=== PATIENT | female | born 1945 | race Caucasian/White ===

== ENCOUNTER 2016-05-24 13:23 | Outpatient (CLI) | payer MEDICARE, OTHER | END 2016-05-24 13:24 | disposition home or self-care (01) | DX: Z12.31 Encounter for screening mammogram for malignant neoplasm of breast (principal); Z80.3 Family history of malignant neoplasm of breast ==

== ENCOUNTER 2016-07-26 11:53 | Outpatient (CLI) | payer MEDICARE, OTHER ==
[2016-07-26] MEDS ORDERED: IOPAMIDOL-300 100 ML VIAL IVP ONE (13:29)
[2016-07-26] MEDS ORDERED: IOPAMIDOL-300 50 ML VIAL PO ONE (13:29)
== END 2016-07-26 11:54 | disposition home or self-care (01) ==
DX: R93.5 Abnormal findings on diagnostic imaging of other abdominal regions, including retroperitoneum (principal); K57.30 Diverticulosis of large intestine without perforation or abscess without bleeding
CPT/HCPCS: 36415; 74177; 80048; Q9967

== ENCOUNTER 2016-07-31 09:58 | Outpatient (CLI) | payer MEDICARE, OTHER | END 2016-07-31 09:59 | disposition home or self-care (01) | DX: E11.9 Type 2 diabetes mellitus without complications (principal) ==

== ENCOUNTER 2016-09-12 10:25 | Day surgery (SDC) | payer MEDICARE, OTHER ==
[2016-09-12] MEDS ORDERED: LACTATED RINGERS 100 ML IV ONE (12:53)
[2016-09-12] MEDS ORDERED: BENZOCAINE/TETRACAINE/BUTAMBEN SPRAY 56 GM TOP ONE (12:58)
[2016-09-12] MEDS ORDERED: LIDO GARGLE 30 ML BOTTLE TOP ONE (12:58)
[2016-09-12] MEDS ORDERED: LACTATED RINGERS 1,000 ML IV ONE (13:19)
[2016-09-12] MEDS ORDERED: diphenhydrAMINE INJ 50 MG/ML VIAL ONE (13:54)
[2016-09-12] MEDS ORDERED: MIDAZOLAM 2 MG/2 ML VIAL IVP ONE (14:00)
[2016-09-12] MEDS ORDERED: KETAMINE 500 MG/10 ML VIAL IVP ONE (14:00)
[2016-09-12] MEDS ORDERED: LIDOCAINE-MPF 2% 5 ML VIAL IM ONE (14:00)
[2016-09-12] MEDS ORDERED: fentaNYL 100 MCG/2 ML VIAL IVP ONE (14:00)
== END 2016-09-12 10:26 | disposition home or self-care (01) ==
PROC: 0DB68ZX Excision of Stomach, Via Natural or Artificial Opening Endoscopic, Diagnostic (ICD-10-PCS; principal; 2016-09-12 11:30)
DX: K31.7 Polyp of stomach and duodenum (principal); K29.60 Other gastritis without bleeding; K58.9 Irritable bowel syndrome, unspecified; Z88.0 Allergy status to penicillin; I10 Essential (primary) hypertension; E78.00 Pure hypercholesterolemia, unspecified; E66.9 Obesity, unspecified; E11.9 Type 2 diabetes mellitus without complications; Z68.35 Body mass index [BMI] 35.0-35.9, adult; Z83.3 Family history of diabetes mellitus; Z82.49 Family history of ischemic heart disease and other diseases of the circulatory system; Z82.3 Family history of stroke; Z79.82 Long term (current) use of aspirin; Z80.1 Family history of malignant neoplasm of trachea, bronchus and lung; Z80.3 Family history of malignant neoplasm of breast; Z90.49 Acquired absence of other specified parts of digestive tract; Z90.710 Acquired absence of both cervix and uterus; Z87.891 Personal history of nicotine dependence
CPT/HCPCS: 43251; A9270; J7120

== ENCOUNTER 2016-11-15 09:41 | Outpatient (CLI) | payer MEDICARE, OTHER ==
[2016-11-15 19:41] LABS: ALBUMIN/GLOBULIN RATIO 1.3 (1.0-2.2); BILIRUBIN,TOTAL 1.1 mg/dL (0.2-1.0); BUN - BLOOD UREA NITROGEN 29 mg/dL (6-20); CALCIUM 9.6 mg/dL (8.5-10.3); CARBON DIOXIDE - CO2 24 mmol/L (21-32); CHLORIDE 102 mmol/L (101-111); CHOL/HDL RATIO 5.5 (<4.4); CHOLESTEROL 242 mg/dL; CREATININE 1.5 mg/dL (0.4-1.0); GFR - MDRD 34 (>89); GLUCOSE 116 mg/dL (70-100); HDL CHOLESTEROL 44 mg/dL; LDL/HDL RATIO 3.7 (<4.4); POTASSIUM 4.4 mmol/L (3.5-5.0); SODIUM 137 mmol/L (135-145); TOTAL PROTEIN 7.8 g/dL (6.7-8.2); TRIGLYCERIDES 172 mg/dL; VLDL CHOLESTEROL 34 mg/dL
[2016-11-15 20:01] LABS: HEMOGLOBIN A1C 0.64 g/dL
== END 2016-11-15 09:42 | disposition home or self-care (01) ==
LOC: LAB.WCP 09:41
PROVIDERS: ATTEND Physician Assistant Medical
DX: E11.9 Type 2 diabetes mellitus without complications (principal)
CPT/HCPCS: 36415; 80053; 80061; 83036

== ENCOUNTER 2017-02-13 11:47 | Outpatient (CLI) | payer MEDICARE, OTHER ==
[2017-02-13 19:23] LABS: CALCIUM 9.4 mg/dL (8.5-10.3); CREATININE 1.6 mg/dL (0.4-1.0); POTASSIUM 4.6 mmol/L (3.5-5.0)
[2017-02-13 19:51] LABS: HEMOGLOBIN A1C 0.5 g/dL
== END 2017-02-13 11:48 | disposition home or self-care (01) ==
LOC: LAB.WCP 11:47
PROVIDERS: ATTEND Physician Assistant Medical
DX: E11.9 Type 2 diabetes mellitus without complications (principal)
CPT/HCPCS: 36415; 80048; 83036

== ENCOUNTER 2017-03-15 09:50 | Outpatient (CLI) | payer MEDICARE, OTHER ==
[2017-03-16 09:36] LABS: CALCIUM 9.1 mg/dL (8.5-10.3); CREATININE 1.3 mg/dL (0.4-1.0)
== END 2017-03-15 09:51 | disposition home or self-care (01) ==
LOC: LAB.WCP 09:50
PROVIDERS: ATTEND Physician Assistant Medical
DX: N18.9 Chronic kidney disease, unspecified (principal)
CPT/HCPCS: 36415; 80048; 82043

== ENCOUNTER 2017-09-10 11:21 | Outpatient (CLI) | payer MEDICARE, OTHER ==
[2017-09-10 19:16] LABS: ALBUMIN 4.2 g/dL (3.2-5.5); ALBUMIN/GLOBULIN RATIO 1.3 (1.0-2.2); CALCIUM 9.4 mg/dL (8.5-10.3); CREATININE 0.9 mg/dL (0.4-1.0); TOTAL PROTEIN 7.4 g/dL (6.7-8.2)
[2017-09-10 20:15] LABS: HEMOGLOBIN A1C 0.77 g/dL; HEMOGLOBIN A1C % 6.8 % (4.6-6.2)
== END 2017-09-10 11:22 ==
LOC: LAB.WCP 11:21
PROVIDERS: ATTEND Physician Assistant Medical
DX: E11.9 Type 2 diabetes mellitus without complications (principal)
CPT/HCPCS: 36415; 80053; 83036

== ENCOUNTER 2017-09-11 13:38 | Outpatient (CLI) | payer MEDICARE, OTHER ==
--- NOTE | 2017-09-13 11:59 | DEXA Report ---
DEXA SCAN: 09/11/2017 CLINICAL INDICATION: Postmenopausal. TECHNIQUE: Dual energy x-ray absorptiometry (DXA) was performed on a [employer] system. Regions measured are the AP spine, femoral neck, and, if needed, forearm. COMPARISON: None. In accordance with the International Society for Clinical Densitometry (ISCD) guidelines, data from previous exams may be reanalyzed using current recommendations and techniques. This is done to allow a more accurate basis for comparison with the current study. FINDINGS: The data for the lumbar spine is as follows: REGION BMD (g/cm/cm) T-SCORE Z-SCORE L1 1.046 -0.7 0.1 L2 1.075 -1.0 -0.3 L3 1.251 0.4 1.2 L4 0.942 -2.2 -1.4 TOTAL 1.078 -0.8 -0.1 NOTE: All evaluable vertebrae are used for classification. The data for the hip is as follows: REGION BMD (g/cm/cm) T-SCORE Z-SCORE Neck 0.892 -1.1 0.1 TOTAL 0.921 -0.7 0.1 NOTE: The femoral neck or total proximal femur, whichever is lowest, is used for classification. IMPRESSION: THE WHO CLASSIFICATION BASED ON THE INTERNATIONAL REFERENCE STANDARD IS OSTEOPENIA (REFERENCE LEFT FEMORAL NECK) . THE FRACTURE RISK IS INCREASED. RECOMMENDATION: Patients with diagnosis of osteoporosis or osteopenia should have regular bone mineral density assessment. For those eligible for Medicare, routine testing is allowed once every 2 years. Testing frequency can be increased for patients who have rapidly progressing disease or for those who are receiving medical therapy to restore bone mass. COMMENT: World Health Organization (WHO) definitions for osteoporosis and osteopenia: NORMAL BMD: T-score at 1.0 or higher, fracture risk is low. OSTEOPENIA BMD: T-score between 1.0 and -2.5, fracture risk is increased. OSTEOPOROSIS BMD: T-score at 2.5 or lower, fracture risk high. National Osteoporosis Foundation recommends: 1. Obtain adequate dietary calcium (at least 1200 mg per day) and vitamin D (400 -800 international units per day). 2. Participate, as appropriate, in regular weightbearing and muscle- strengthening exercise. 3. Avoid tobacco use and reduce alcohol and caffeine intake. 4. For more detailed information see the website at www.NOF.org. MTDD
== END 2017-09-11 13:39 | disposition home or self-care (01) ==
LOC: DI 13:38
PROVIDERS: ATTEND Physician Assistant Medical
DX: M89.9 Disorder of bone, unspecified (principal)
CPT/HCPCS: 77080

== ENCOUNTER 2017-10-22 08:00 | Outpatient (CLI) | payer MEDICARE, OTHER ==
[2017-10-22 19:44] LABS: CALCIUM 9.5 mg/dL (8.5-10.3); CREATININE 1.2 mg/dL (0.4-1.0)
== END 2017-10-22 08:01 | disposition home or self-care (01) ==
LOC: LAB.WCP 08:00
PROVIDERS: ATTEND Family Medicine
DX: R25.2 Cramp and spasm (principal); R25.1 Tremor, unspecified
CPT/HCPCS: 36415; 80048; 84443

== ENCOUNTER 2017-12-19 08:00 | Outpatient (CLI) | payer MEDICARE, OTHER ==
[2017-12-19 19:13] LABS: HB2 TOTAL 14.1 g/dL; HEMOGLOBIN A1C 0.8 g/dL; HEMOGLOBIN A1C % 7.3 % (4.6-6.2)
[2017-12-19 19:17] LABS: ALBUMIN/GLOBULIN RATIO 1.1 (1.0-2.2); ALKALINE PHOSPHATASE 69 IU/L (42-121); ALT ALANINE AMINOTRANSFERASE 22 IU/L (10-60); AST ASPARTATE AMINOTRANSFERASE 26 IU/L (10-42); BILIRUBIN,TOTAL 0.9 mg/dL (0.2-1.0); BUN - BLOOD UREA NITROGEN 27 mg/dL (6-20); CALCIUM 9.5 mg/dL (8.5-10.3); CARBON DIOXIDE - CO2 26 mmol/L (21-32); CHLORIDE 101 mmol/L (101-111); CHOLESTEROL 241 mg/dL; CREATININE 1.3 mg/dL (0.4-1.0); GFR - MDRD 40 (>89); GLUCOSE 140 mg/dL (70-100); HDL CHOLESTEROL 40 mg/dL; LDL CHOLESTEROL,CALCULATED 161 mg/dL; SODIUM 135 mmol/L (135-145); TOTAL PROTEIN 7.7 g/dL (6.7-8.2); VLDL CHOLESTEROL 40 mg/dL
== END 2017-12-19 08:01 | disposition home or self-care (01) ==
LOC: LAB.WCP 08:00
PROVIDERS: ATTEND Physician Assistant Medical
DX: E11.9 Type 2 diabetes mellitus without complications (principal)
CPT/HCPCS: 36415; 80053; 80061; 83036; 83721

== ENCOUNTER 2017-12-28 10:38 | Outpatient (CLI) | payer MEDICARE, OTHER ==
--- NOTE | 2017-12-31 13:34 | Mammography Report ---
Procedure Date: 12/28/2017 Accession Number: [id number] / [id number] Procedure: MGN - Screening Mammo Dig Bilat CPT Code: FULL RESULT: EXAM: Screening Mammo Dig Bilat DATE: 12/28/2017 10:56 AM CLINICAL HISTORY: 72-year-old female with history of early menses and with family history of breast cancer in the mother at age 64. TECHNIQUE: Bilateral CC and MLO views were obtained. COMPARISON: None FINDINGS: The breasts demonstrate scattered fibroglandular densities bilaterally. Coarse typically benign calcifications are seen bilaterally. No suspicious masses, clustered microcalcifications, or regions of architectural distortion are identified. IMPRESSION: Benign findings RECOMMENDATION: Routine annual screening unless otherwise clinically indicated. BIRADS CATEGORY 2: Benign findings STANDARD QUALIFYING STATEMENTS: 1. This examination was reviewed with the aid of Computer-Aided Detection (CAD). 2. A negative or benign imaging report should not delay biopsy if clinically suspicious findings are present. Consider surgical consultation if warrented. More than 5% of cancers are not identified by imaging. 3. Dense breasts may obscure an underlying neoplasm.
== END 2017-12-28 10:39 | disposition home or self-care (01) ==
LOC: DI.N 10:38
PROVIDERS: ATTEND Radiology Diagnostic Radiology
DX: Z12.31 Encounter for screening mammogram for malignant neoplasm of breast (principal); Z80.3 Family history of malignant neoplasm of breast
CPT/HCPCS: 77067

== ENCOUNTER 2018-01-03 16:27 | Outpatient (CLI) | payer MEDICARE, OTHER ==
--- NOTE | 2018-01-04 17:09 | MRI Report ---
Procedure Date: 01/03/2018 Accession Number: [id number] / [id number] Procedure: MRI - Lumbar Spine W/O CPT Code: FULL RESULT: EXAM: MRI LUMBAR SPINE WITHOUT CONTRAST EXAM DATE: 01/03/2018 05:12 PM. CLINICAL HISTORY: Degenerative disk disease, lumbar spine. COMPARISON: None. TECHNIQUE: Multiplanar, multisequence T1-weighted and fluid-sensitive sequences of the lumbar spine from T12 to S1 without contrast. Other: None. FINDINGS: There is a mild degree of accentuation of the normal lumbar lordosis. The conus terminates at the mid L1 vertebral body level. There is mild decrease in the height of the disk with desiccation at T9-T10, T10-T11, T11-T12, T12-L1, L1-L2, L2-L3, and L3-L4. The abdominal aorta is of normal caliber. There is no significant atrophy of the paraspinal musculature or the psoas musculature. There is an atypical hemangioma within L2. There is a small hemangioma in the superior Endplate of L5. There is small foci of Modic type II endplate degenerative change within the T12-L1, L1-L2, and L2-L3 endplates. The kidneys are without evidence of hydronephrosis. T9-T10: There is a small disk osteophyte complex producing a mild central canal stenosis. There is no significant foraminal stenosis. T10-T11: There is a small disk osteophyte complex. There is mild ligamentum flavum hypertrophy. There is a mild to moderate central canal stenosis. There is mild neural foraminal narrowing bilaterally. T11-T12: There is a small disk osteophyte complex producing a mild central canal stenosis. There is no significant foraminal stenosis. T12-L1: There is a small disk osteophyte complex abutting the sac producing a mild central canal stenosis. There is no significant foraminal stenosis. L1-L2: There is a small disk osteophyte complex producing a mild central canal stenosis. There is mild left facet arthropathy. There is mild narrowing of the neural foramina bilaterally. L2-L3: There is a broad-based disk osteophyte complex abutting the sac producing a mild central canal stenosis. The facets are normal. There is mild neural foraminal narrowing bilaterally. L3-L4: There is a broad-based disk osteophyte complex producing a moderate central canal stenosis in conjunction with epidural lipomatosis. The facets are normal. There is mild to moderate neural foraminal narrowing bilaterally. L4-L5: There is mild to moderate bilateral facet arthropathy and ligamentum flavum hypertrophy. There is no significant disk bulge or central canal stenosis. There is mild to moderate neural foraminal narrowing bilaterally. L5-S1: There is a minimal disk bulge but without significant central canal stenosis. There is no significant disk bulge or central canal stenosis. The facets are normal. There is no significant foraminal stenosis. IMPRESSION: 1. There are mild central canal stenoses at T9-T10, T11-T12, T12-L1, L1-L2 and L2-L3 from small disk osteophyte complexes. 2. There is a moderate central canal stenosis from a broad-based disk osteophyte complex in conjunction with epidural lipomatosis at L3-L4. Comment: The following findings are so common in adults without low back pain that while we report their presence, they must be interpreted with caution and in the context of the clinical situation. (Reference Laryk et al, Spine 2001) Prevalence of findings in patients without low back pain: Disk degeneration (any evidence): 92% Disk desiccation/T2 signal loss: 83% Disk height loss: 56% Disk bulge: 64% Disk protrusion: 32% Annular tear/high intensity zone: 38% RADIA
== END 2018-01-03 16:28 | disposition home or self-care (01) ==
LOC: DI 16:27
PROVIDERS: ATTEND Physician Assistant Medical
DX: M51.36 Other intervertebral disc degeneration, lumbar region (principal); M51.34 Other intervertebral disc degeneration, thoracic region; M47.896 Other spondylosis, lumbar region; M47.894 Other spondylosis, thoracic region; M48.04 Spinal stenosis, thoracic region; M48.061 Spinal stenosis, lumbar region without neurogenic claudication; E88.2 Lipomatosis, not elsewhere classified
CPT/HCPCS: 72148

== ENCOUNTER 2018-03-22 11:33 | Outpatient (CLI) | payer MEDICARE, OTHER ==
[2018-03-22 18:48] LABS: ALBUMIN 4.3 g/dL (3.2-5.5); ALBUMIN/GLOBULIN RATIO 1.3 (1.0-2.2); ALKALINE PHOSPHATASE 78 IU/L (42-121); ALT ALANINE AMINOTRANSFERASE 19 IU/L (10-60); AST ASPARTATE AMINOTRANSFERASE 22 IU/L (10-42); BUN - BLOOD UREA NITROGEN 23 mg/dL (6-20); CALCIUM 9.2 mg/dL (8.5-10.3); CARBON DIOXIDE - CO2 26 mmol/L (21-32); CHLORIDE 104 mmol/L (101-111); CHOL/HDL RATIO 4.2 (<4.4); CHOLESTEROL 174 mg/dL; CREATININE 1.1 mg/dL (0.4-1.0); GFR - MDRD 49 (>89); GLUCOSE 156 mg/dL (70-100); HB2 TOTAL 13.5 g/dL; HDL CHOLESTEROL 41 mg/dL; HEMOGLOBIN A1C 0.68 g/dL; HEMOGLOBIN A1C % 6.8 % (4.6-6.2); LDL CHOLESTEROL,CALCULATED 85 mg/dL; LDL/HDL RATIO 2.1 (<4.4); SODIUM 137 mmol/L (135-145); TOTAL PROTEIN 7.6 g/dL (6.7-8.2); VLDL CHOLESTEROL 48 mg/dL
== END 2018-03-22 11:34 | disposition home or self-care (01) ==
LOC: LAB.WCP 11:33
PROVIDERS: ATTEND Physician Assistant Medical
DX: E11.9 Type 2 diabetes mellitus without complications (principal)
CPT/HCPCS: 36415; 80053; 80061; 83036; 83721

== ENCOUNTER 2018-07-10 05:53 | Outpatient (CLI) | payer MEDICARE, OTHER | END 2018-07-10 05:54 | disposition critical access hospital (66) | LOC: EMS 05:53 | PROVIDERS: ATTEND Surgery | DX: R10.9 Unspecified abdominal pain (principal) | CPT/HCPCS: A0425; A0427 ==

== ENCOUNTER 2018-07-10 06:11 | Emergency (ER) | payer MEDICARE, OTHER ==
[2018-07-10] MEDS ORDERED: SODIUM CHLORIDE 0.9% 1,000 ML IV STA (06:33)
[2018-07-10 06:53] LABS: BASOPHILS # (AUTO) 0.1 10^3/uL (0.0-0.1); BASOPHILS % (AUTO) 1.1 %; EOSINOPHILS # (AUTO) 0.2 10^3/uL (0.0-0.7); EOSINOPHILS % (AUTO) 2.1 %; HGB - HEMOGLOBIN 12.8 g/dL (12.0-16.0); LYMPHOCYTES # (AUTO) 2.9 10^3/uL (1.5-3.5); LYMPHOCYTES % (AUTO) 30.4 %; MEAN CORPUSCULAR HGB CONC 32.9 g/dL (32.0-36.0); MEAN CORPUSCULAR VOLUME 94.3 fL (81.0-99.0); MEAN PLATELET VOLUME 8.1 fL (7.9-10.8); MONOCYTES # (AUTO) 0.8 10^3/uL (0.0-1.0); MONOCYTES % (AUTO) 8.6 %; NEUTROPHILS # (AUTO) 5.6 10^3/uL (1.5-6.6); NEUTROPHILS % (AUTO) 57.8 %; PLT - PLATELET COUNT 257 10^3/uL (130-450); RED BLOOD COUNT 4.13 10^6/uL (4.20-5.40); RED CELL DISTRIBUTION WIDTH 14.1 % (12.0-15.0); WHITE BLOOD COUNT 9.7 x10^3/uL (4.8-10.8)
[2018-07-10 07:06] LABS: ALBUMIN 3.8 g/dL (3.2-5.5); ALBUMIN/GLOBULIN RATIO 1.1 (1.0-2.2); BILIRUBIN,TOTAL 0.6 mg/dL (0.2-1.0); CALCIUM 9.4 mg/dL (8.5-10.3); CREATININE 1.2 mg/dL (0.4-1.0); TOTAL PROTEIN 7.2 g/dL (6.7-8.2)
[2018-07-10 07:07] VITALS: BP 139/68
[2018-07-10] MEDS ORDERED: IOVERSOL 320 100 ML VIAL IVP ONE ×2 (07:11→12:14)
--- NOTE | 2018-07-10 07:15 | ED Physician Documentation ---
PD HPI ABD PAIN - Stated complaint Stated Complaint: LUQ PAIN - Chief complaint Chief Complaint: Abd Pain - History obtained from History obtained from: Patient, EMS - History of Present Illness Timing - onset: Enter time Timing - duration: Days (1) Timing - details: Gradual onset Pain level max: 8 Pain level now: 2 Quality: Aching, Pain Location: LUQ, LLQ Radiation: No: Chest, , Lower back, Left flank, Left shoulder, Right flank, Right shoulder, Upper back Improved by: Laying still Worsened by: Palpation Associated symptoms: Diarrhea. No: Fever, Nausea, Vomiting, Constipation, Melena, Hematochezia, Dysuria, Hematuria Similar symptoms before: Has not had sx before Recently seen: Not recently seen Review of Systems Ten Systems: 10 systems reviewed and negative Constitutional: denies: Fever, Chills Ears: denies: Ear pain Nose: denies: Rhinorrhea / runny nose, Congestion Throat: denies: Sore throat Cardiac: denies: Chest pain / pressure Respiratory: denies: Cough GI: denies: Nausea, Vomiting, Hematemesis, Bloody / black stool : denies: Dysuria, Frequency, Hesitancy Skin: denies: Rash Musculoskeletal: denies: Neck pain, Back pain Neurologic: denies: Focal weakness, Numbness, Headache PD PAST MEDICAL HISTORY - Past Medical History Past Medical History: Yes Cardiovascular: Hypertension, High cholesterol Endocrine/Autoimmune: Type 2 diabetes GI: GERD, Chronic diarrhea, Chronic constipation : None HEENT: Chronic vision loss Psych: Depression, Anxiety Musculoskeletal: Other - Past Surgical History Past Surgical History: Yes General: Cholecystectomy, Appendectomy, Colonoscopy, 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 HEENT: Cataracts, Tonsil/Adenoidectomy - Present Medications Home Medications: Ambulatory Orders Medication Instructions Recorded Confirmed Losartan [Cozaar] 50 mg PO BID 01/20/14 07/10/18 Metformin HCl 500 mg PO BID 01/20/14 07/10/18 Omeprazole 20 mg PO BID 01/20/14 07/10/18 Rizatriptan Benzoate [Maxalt Resolution Expert] 5 mg PO ONCE PRN 01/20/14 07/10/18 Triamterene/Hydrochlorothiazid 1 cap PO DAILY 01/20/14 07/10/18 [Triamterene-Hctz 37.5-25 mg Cp] Zolpidem Tartrate [Ambien] 10 mg PO QPM 01/20/14 07/10/18 Dicyclomine HCl 20 mg PO DAILY 08/29/16 07/10/18 Amox/Clav 875/125 [Augmentin] 1 each PO Q12H #20 tablet 07/10/18 Ondansetron Odt [Zofran] 4 mg TL Q6H PRN #10 tablet 07/10/18 - Allergies Allergies/Adverse Reactions: Allergies Allergy/AdvReac Type Severity Reaction Status Date / Time meperidine HCl * Allergy Rash Verified 07/10/18 06:23 [From Demerol] propofol AdvReac Severe Anxiety Verified 07/10/18 06:23 atorvastatin calcium * AdvReac Respiratory Verified 07/10/18 06:23 [From Lipitor] ezetimibe [From Zetia] AdvReac Cramps Verified 07/10/18 06:23 ibuprofen [From Motrin] AdvReac Cramps Verified 07/10/18 06:23 pitavastatin calcium * AdvReac Cramps Verified 07/10/18 06:23 [From Livalo] simvastatin [From Zocor] AdvReac Cramps Verified 07/10/18 06:23 - Social History Does the pt smoke?: No Smoking Status: Never smoker Does the pt drink ETOH?: Yes Does the pt have substance abuse?: No - Immunizations Immunizations are current?: Yes - POLST Patient has POLST: No PD ED PE NORMAL - Vitals Vital signs reviewed: Yes - General General: Alert and oriented X 3, No acute distress - HEENT HEENT: Moist mucous membranes - Neck Neck: Supple, no meningeal sign - Cardiac Cardiac: RRR, Strong equal pulses - Respiratory Respiratory: No respiratory distress, Clear bilaterally - Abdomen Abdomen: Soft, Non distended, Other (TTP LUQ and LLQ, no peritoneal signs.) - Back Back: No spinal TTP - Derm Derm: Warm and dry - Extremities Extremities: No edema - Neuro Neuro: Alert and oriented X 3 Results - Vitals Vitals: Vital Signs - 24 hr 07/10/18 07/10/18 06:18 07:06 Temperature 36.0 C L Heart Rate 64 67 Respiratory 16 16 Rate Blood Pressure 129/64 139/68 H O2 Saturation 96 96 Oxygen O2 Source Room air - Labs Labs: Laboratory Tests 07/10/18 07/10/18 06:44 06:44 WBC 9.7 RBC 4.13 L Hgb 12.8 Hct 38.9 MCV 94.3 MCH 31.0 MCHC 32.9 RDW 14.1 Plt Count 257 MPV 8.1 Neut # (Auto) 5.6 Lymph # (Auto) 2.9 [place] # (Auto) 0.8 Eos # (Auto) 0.2 Baso # (Auto) 0.1 Absolute Nucleated RBC 0.00 Nucleated RBC % 0.0 Sodium 134 L Potassium 4.7 Chloride 100 L Carbon Dioxide 25 Anion Gap 9.0 BUN 26 H Creatinine 1.2 H Estimated GFR (MDRD) 44 L Glucose 203 H Calcium 9.4 Total Bilirubin 0.6 AST 55 H ALT 59 Alkaline Phosphatase 70 Total Protein 7.2 Albumin 3.8 Globulin 3.4 Albumin/Globulin Ratio 1.1 Lipase 58 H - Rads (name of study) CT abd/pelvis Radiology: Prelim report reviewed, EMP read contemporaneously, See rad report (No acute inflammatory changes in the abdomen or pelvis. 2. Sigmoid colon diverticulosis without diverticulitis. 3. Absent gallbladder. 4. The appendix is not visualized, but without right lower quadrant inflammatory changes. ) PD MEDICAL DECISION MAKING - ED course Complexity details: reviewed results, re-evaluated patient, considered differential, d/w patient ED course: 73-year-old female with clinically what sounds like diverticulitis. CT scan is read as normal, but on my review it does appear as there is some fat stranding on the descending colon, mainly near the splenic flexure which correlates with her pain. Therefore will treat her for diverticulitis. She is well-appearing, nontoxic. Afebrile. Patient counseled regarding signs and symptoms for which I believe and urgent re-evaluation would be necessary. Patient with good understanding of and agreement to plan and is comfortable going home at this time This document was made in part using voice recognition software. While efforts are made to proofread this document, sound alike and grammatical errors may occur. Departure - Departure Disposition: 01 Home, Self Care Clinical Impression: Diverticulitis Condition: Good Instructions: ED Diverticulitis Follow-Up: Chrissy Cordero PA-C [Primary Care Provider] - Within 1 week Prescriptions: Amox/Clav 875/125 [Augmentin] 1 each PO Q12H #20 tablet Ondansetron Odt [Zofran] 4 mg TL Q6H PRN #10 tablet PRN Reason: Nausea / Vomiting Comments: Take all antibiotics gone. Return if you worsen. Discharge Date/Time: 07/10/18 08:42
--- NOTE | 2018-07-10 08:16 | CT Report ---
Reason: LLQ abd. pain Procedure Date: 07/10/2018 Accession Number: [id number] / [id number] Procedure: CT - Abdomen/Pelvis W CPT Code: FULL RESULT: EXAM: CT ABDOMEN AND PELVIS EXAM DATE: 07/10/2018 07:38 AM. CLINICAL HISTORY: Left lower quadrant abdominal pain. COMPARISONS: CT ABDOMEN/PELVIS W/ 07/26/2016 1:27 PM. TECHNIQUE: Routine helical CT imaging was performed through the abdomen and pelvis. IV contrast: 100 mL of Optiray 320. Enteric contrast: No. Reconstructions: Coronal and sagittal. In accordance with CT protocol optimization, one or more of the following dose reduction techniques were utilized for this exam: automated exposure control, adjustment of mA and/or KV based on patient size, or use of iterative reconstructive technique. FINDINGS: Lung Bases: Linear subsegmental atelectasis in the left lower lobe. Liver: Normal. No masses. Gallbladder/Bile Ducts: Absent gallbladder. No intrahepatic or extrahepatic biliary dilation. Spleen: Normal. Pancreas: Normal. Adrenal Glands: Normal. Kidneys: Normal. No masses or hydronephrosis. Peritoneal Cavity/Bowel: Sigmoid colon diverticulosis without diverticulitis.. No free fluid, free air or adenopathy. No masses or acute inflammatory process. I do not identify the appendix, but there are no right lower quadrant inflammatory changes. Pelvic Organs: Absent uterus and ovaries. The bladder is unremarkable. Vasculature: Calcified atherosclerotic plaques in the aorta and iliac arteries, without aneurysmal dilation. Bones: No significant abnormality. Multilevel thoracic and lumbar spondylosis. Other: Small hiatal hernia. Small fat-containing umbilical hernia. IMPRESSION: 1. No acute inflammatory changes in the abdomen or pelvis. 2. Sigmoid colon diverticulosis without diverticulitis. 3. Absent gallbladder. 4. The appendix is not visualized, but without right lower quadrant inflammatory changes. RADIA
[2018-07-10] MEDS ORDERED: ONDANSETRON ODT 4 MG TABLET TL STA (08:46)
== END 2018-07-10 08:42 | disposition home or self-care (01) ==
LOC: ED 06:11
DX: K57.32 Diverticulitis of large intestine without perforation or abscess without bleeding (principal); E11.9 Type 2 diabetes mellitus without complications; I10 Essential (primary) hypertension; E78.00 Pure hypercholesterolemia, unspecified
CPT/HCPCS: 36415; 74177; 80053; 83690; 85025; 96360; 99283

== ENCOUNTER 2018-07-14 21:59 | Emergency (ER) | payer MEDICARE, OTHER ==
[2018-07-14] MEDS ORDERED: LIDOCAINE VISCOUS 2% 15 ML UDC MM STA (22:47)
[2018-07-14] MEDS ORDERED: SODIUM CHLORIDE 0.9% 1,000 ML IV ONE (22:47)
[2018-07-14] MEDS ORDERED: MAG HYDROX/AL HYDROX/SIMETH 30 ML UDC PO STA (22:48)
--- NOTE | 2018-07-14 22:50 | ED Physician Documentation ---
PD HPI ABD PAIN - Stated complaint Stated Complaint: ABDOMINAL PX - Chief complaint Chief Complaint: General - History obtained from History obtained from: Patient, Family - History of Present Illness Timing - onset: How many days ago (5) Timing - duration: Days (5) Timing - details: Gradual onset, Still present Quality: Sharp, Pain Location: LUQ Radiation: Chest Worsened by: Eating Associated symptoms: Nausea, Diarrhea Similar symptoms before: Diagnosis (diverticulitis) Recently seen: Emergency Dept - Additional information Additional information: 73 y/o female with a history of GERD, IBS, DM diverticulitis and s/p mary, appy and hyst has developed LLQ pain last week and is being treated for diverticulitis on augmentin has developed epigastric burning and pain and she is having a hard time with her "depression" making it hard for her to think tonight. Review of Systems Constitutional: reports: Fatigue. denies: Fever Eyes: denies: Decreased vision Ears: denies: Ear pain Nose: denies: Rhinorrhea / runny nose, Congestion Throat: denies: Sore throat Cardiac: denies: Chest pain / pressure, Palpitations, Pedal edema, Calf pain Respiratory: denies: Dyspnea, Cough GI: reports: Abdominal Pain, Nausea, Diarrhea : reports: Frequency. denies: Dysuria Skin: denies: Rash Musculoskeletal: denies: Neck pain, Back pain, Extremity pain Neurologic: reports: Generalized weakness, Headache. 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 HEENT: Cataracts, Tonsil/Adenoidectomy - Present Medications Home Medications: Ambulatory Orders Medication Instructions Recorded Confirmed Losartan [Cozaar] 50 mg PO BID 01/20/14 07/10/18 Metformin HCl 500 mg PO BID 01/20/14 07/10/18 Omeprazole 20 mg PO BID 01/20/14 07/10/18 Rizatriptan Benzoate [Maxalt Commercial Real Estate Attorney] 5 mg PO ONCE PRN 01/20/14 07/10/18 Triamterene/Hydrochlorothiazid 1 cap PO DAILY 01/20/14 07/10/18 [Triamterene-Hctz 37.5-25 mg Cp] Zolpidem Tartrate [Ambien] 10 mg PO QPM 01/20/14 07/10/18 Dicyclomine HCl 20 mg PO DAILY 08/29/16 07/10/18 Amox/Clav 875/125 [Augmentin] 1 each PO Q12H #20 tablet 07/10/18 Ondansetron Odt [Zofran] 4 mg TL Q6H PRN #10 tablet 07/10/18 Lorazepam [Ativan] 1 mg PO Q6HR PRN #14 tablet 07/15/18 Sucralfate [Carafate] 1 gm PO ACHS #60 tablet 07/15/18 - Allergies Allergies/Adverse Reactions: Allergies Allergy/AdvReac Type Severity Reaction Status Date / Time lisinopril Allergy cough Verified 07/14/18 22:06 meperidine HCl * Allergy Rash Verified 07/14/18 22:06 [From Demerol] propofol AdvReac Severe Anxiety Verified 07/14/18 22:06 ampicillin AdvReac diarrhea Verified 07/14/18 22:06 atorvastatin calcium * AdvReac Respiratory Verified 07/14/18 22:06 [From Lipitor] ezetimibe [From Zetia] AdvReac Cramps Verified 07/14/18 22:06 ibuprofen [From Motrin] AdvReac Cramps Verified 07/14/18 22:06 pitavastatin calcium * AdvReac Cramps Verified 07/14/18 22:06 [From Livalo] ranitidine [From Zantac] AdvReac tired,blurry Verified 07/14/18 22:06 vision rofecoxib [From Vioxx] AdvReac Respiratory Verified 07/14/18 22:06 simvastatin [From Zocor] AdvReac Cramps Verified 07/14/18 22:06 sulfamethoxazole AdvReac Nausea Verified 07/14/18 22:06 [From Septra] trimethoprim [From Septra] AdvReac Nausea Verified 07/14/18 22:06 paper tape Allergy Unknown Uncoded 07/14/18 22:06 - Social History Does the pt smoke?: No Smoking Status: Never smoker Does the pt drink ETOH?: Yes Does the pt have substance abuse?: No - Immunizations Immunizations are current?: Yes - POLST Patient has POLST: No PD ED PE NORMAL - Vitals Vital signs reviewed: Yes (hypertensive ) - General General: Alert and oriented X 3, Well developed/nourished, Other (The patient has orchard pruner tone and flat affect consistent with pain. ) - HEENT HEENT: Atraumatic, PERRL, EOMI - Neck Neck: Supple, no meningeal sign, No bony TTP - Cardiac Cardiac: RRR, No murmur - Respiratory Respiratory: No respiratory distress, Clear bilaterally - Abdomen Abdomen: Soft, Other (mild general tenderness and migrating tenderness without guarding or rebound tenderness. ) - Back Back: No CVA TTP, No spinal TTP - Derm Derm: Normal color, Warm and dry, No rash - Extremities Extremities: No deformity, No edema - Neuro Neuro: Alert and oriented X 3, machine stitcher 2-12 intact, No motor deficit, No sensory deficit, Normal speech Eye Opening: Spontaneous Motor: Obeys Commands Verbal: Oriented GCS Score: 15 - Psych Psych: Other (mood is defeated and the affect is labile ) Results - Vitals Vitals: Vital Signs - 24 hr 07/14/18 07/14/18 07/15/18 22:01 23:51 01:00 Temperature 36.5 C 36.6 C Heart Rate 81 72 87 Respiratory 18 16 19 Rate Blood Pressure 148/75 H 139/57 H 130/60 O2 Saturation 100 98 100 07/15/18 02:22 Temperature Heart Rate 80 Respiratory 17 Rate Blood Pressure 133/67 H O2 Saturation 98 Oxygen O2 Source Room air - Labs Labs: Laboratory Tests 07/14/18 07/14/18 07/14/18 22:30 23:00 23:00 WBC 13.8 H RBC 4.32 Hgb 13.8 Hct 39.4 MCV 91.2 MCH 31.9 H MCHC 35.0 RDW 14.1 Plt Count 318 MPV 8.4 Neut # (Auto) 9.0 H Lymph # (Auto) 3.4 [place] # (Auto) 1.0 Eos # (Auto) 0.2 Baso # (Auto) 0.1 Absolute Nucleated RBC 0.01 Nucleated RBC % 0.0 Sodium 138 Potassium 3.9 Chloride 102 Carbon Dioxide 25 Anion Gap 11.0 BUN 30 H Creatinine 1.3 H Estimated GFR (MDRD) 40 L Glucose 150 H Calcium 9.7 Total Bilirubin 0.7 AST 43 H ALT 51 Alkaline Phosphatase 73 Troponin I Total Protein 8.3 H Albumin 4.4 Globulin 3.9 Albumin/Globulin Ratio 1.1 Lipase 52 H Urine Color YELLOW Urine Clarity CLEAR Urine pH 6.5 Ur Specific [place] 1.010 Urine Protein NEGATIVE Urine Glucose (UA) NEGATIVE Urine Ketones NEGATIVE Urine Occult Blood NEGATIVE Urine Nitrite NEGATIVE Urine Bilirubin NEGATIVE Urine Urobilinogen 1 (NORMAL) Ur Leukocyte Esterase NEGATIVE Ur Microscopic Review NOT INDICATED Urine Culture Comments NOT INDICATED 07/14/18 23:00 WBC RBC Hgb Hct MCV MCH MCHC RDW Plt Count MPV Neut # (Auto) Lymph # (Auto) [place] # (Auto) Eos # (Auto) Baso # (Auto) Absolute Nucleated RBC Nucleated RBC % Sodium Potassium Chloride Carbon Dioxide Anion Gap BUN Creatinine Estimated GFR (MDRD) Glucose Calcium Total Bilirubin AST ALT Alkaline Phosphatase Troponin I < 0.04 Total Protein Albumin Globulin Albumin/Globulin Ratio Lipase Urine Color Urine Clarity Urine pH Ur Specific [place] Urine Protein Urine Glucose (UA) Urine Ketones Urine Occult Blood Urine Nitrite Urine Bilirubin Urine Urobilinogen Ur Leukocyte Esterase Ur Microscopic Review Urine Culture Comments Procedures - IVC sono (time) 221 Bedside IVC sono: IVC measures (cm) (1.10), IVC collapsed c insp (cm) (complete), Dehydration (est >1 liter deficit) PD MEDICAL DECISION MAKING - ED course Complexity details: reviewed old records, reviewed results, re-evaluated yana ent, considered differential, d/w patient, d/w family ED course: 73 y/o female with epigastric pain is crying in pain and frustrated. She is administered viscous lido with mylanta with improvement in her pain and she is found o be dehydrated likely on the basis of her diabetes and she is administered saline as well as protonix and carafate. She appears emotionally distraught and she is administered ativan with marked improvement and she would like to go home. The family states that she is stressed about a remodel they are doing in their home and she has not been able to access her usual bathroom and is "kicked out" her room daily for workers to come in. They are almost done and we have provided her with a short supply of ativan as she seems to think this helped a lot. Departure - Departure Disposition: 01 Home, Self Care Clinical Impression: Stress reaction, Dehydration Gastritis Qualifiers: Gastritis type: unspecified gastritis Chronicity: acute Gastritis bleeding: without bleeding Qualified Code(s): K29.00 - Acute gastritis without bleeding Instructions: ED Stress React, Lorazepam, ED Dehydration, ED PUD Vs Gastritis Follow-Up: Chrissy Cordero PA-C [Primary Care Provider] - Prescriptions: Lorazepam [Ativan] 1 mg PO Q6HR PRN #14 tablet PRN Reason: Anxiety Sucralfate [Carafate] 1 gm PO ACHS #60 tablet Comments: Today it appears you have 3 things going on. 1. you were significantly dehydrated and we have given you IV hydration. 2. it appears you have a gastritis causing some significant abdominal pain. For this we recommend you take the Carafate as prescribed and take your omeprazole. 3. the stress reaction has caused your depression symptoms to become intolerable. I have provided a prescription for some sedative medication that can be used on an as- needed basis. I suspect that as your house remodel is finished your life will return more toward normal. Discharge Date/Time: 07/15/18 02:28
[2018-07-14 22:56] LABS: BILIRUBIN,URINE NEGATIVE (NEGATIVE); GLUCOSE, URINE (UA) NEGATIVE (NEGATIVE); KETONES,URINE (UA) NEGATIVE (NEGATIVE); LEUKOCYTE ESTERASE, URINE NEGATIVE (NEGATIVE); NITRITE,URINE NEGATIVE (NEGATIVE); OCCULT BLOOD,URINE NEGATIVE (NEGATIVE); PH,URINE 6.5 PH (5.0-7.5); PROTEIN,URINE NEGATIVE (NEGATIVE); UROBILINOGEN,URINE 1 (NORMAL) E.U./dL (NORMAL)
[2018-07-14 22:57] LABS: CLARITY,URINE CLEAR (CLEAR)
[2018-07-14 23:12] LABS: BASOPHILS # (AUTO) 0.1 10^3/uL (0.0-0.1); BASOPHILS % (AUTO) 0.9 %; EOSINOPHILS # (AUTO) 0.2 10^3/uL (0.0-0.7); EOSINOPHILS % (AUTO) 1.6 %; HGB - HEMOGLOBIN 13.8 g/dL (12.0-16.0); LYMPHOCYTES # (AUTO) 3.4 10^3/uL (1.5-3.5); LYMPHOCYTES % (AUTO) 24.5 %; MEAN CORPUSCULAR HEMOGLOBIN 31.9 pg (27.0-31.0); MEAN CORPUSCULAR VOLUME 91.2 fL (81.0-99.0); MEAN PLATELET VOLUME 8.4 fL (7.9-10.8); MONOCYTES % (AUTO) 7.4 %; NEUTROPHILS % (AUTO) 65.6 %; PLT - PLATELET COUNT 318 10^3/uL (130-450); RED BLOOD COUNT 4.32 10^6/uL (4.20-5.40); RED CELL DISTRIBUTION WIDTH 14.1 % (12.0-15.0); WHITE BLOOD COUNT 13.8 x10^3/uL (4.8-10.8)
[2018-07-14] MEDS ORDERED: LORazepam 2 MG/ML VIAL IVP STA (23:15)
[2018-07-14 23:24] LABS: ALBUMIN 4.4 g/dL (3.2-5.5); ALBUMIN/GLOBULIN RATIO 1.1 (1.0-2.2); BILIRUBIN,TOTAL 0.7 mg/dL (0.2-1.0); CALCIUM 9.7 mg/dL (8.5-10.3); CREATININE 1.3 mg/dL (0.4-1.0); TOTAL PROTEIN 8.3 g/dL (6.7-8.2)
[2018-07-15] MEDS ORDERED: PANTOPRAZOLE 40 MG VIAL IVP STA (01:05)
[2018-07-15] MEDS ORDERED: SODIUM CHLORIDE 0.9% 1,000 ML IV ONE (01:05)
[2018-07-15] MEDS ORDERED: SUCRALFATE 1 GM/10 ML UDC PO STA (01:05)
[2018-07-15 02:23] VITALS: BP 133/67
== END 2018-07-15 02:28 | disposition home or self-care (01) ==
LOC: ED 21:59
DX: F43.9 Reaction to severe stress, unspecified (principal); E86.0 Dehydration; K29.00 Acute gastritis without bleeding; I10 Essential (primary) hypertension; E78.00 Pure hypercholesterolemia, unspecified
CPT/HCPCS: 36415; 80053; 81003; 83690; 84484; 85025; 96361; 96374; 96375; 99283; 99284; A9270; J2060; 81001; 87086

== ENCOUNTER 2018-07-25 08:00 | Outpatient (CLI) | payer MEDICARE, OTHER ==
[2018-07-25 19:11] LABS: ALBUMIN/GLOBULIN RATIO 1.2 (1.0-2.2); BILIRUBIN,TOTAL 0.8 mg/dL (0.2-1.0); CALCIUM 9.2 mg/dL (8.5-10.3); CREATININE 1.1 mg/dL (0.4-1.0); TOTAL PROTEIN 7.3 g/dL (6.7-8.2)
== END 2018-07-25 23:59 ==
LOC: LAB.WCP 08:00
PROVIDERS: ATTEND Nurse Practitioner
DX: K29.70 Gastritis, unspecified, without bleeding (principal); K57.92 Diverticulitis of intestine, part unspecified, without perforation or abscess without bleeding; E11.9 Type 2 diabetes mellitus without complications
CPT/HCPCS: 36415; 80053

== ENCOUNTER 2018-07-27 08:12 | Emergency (ER) | payer MEDICARE, OTHER ==
[2018-07-27 08:40] LABS: BASOPHILS # (AUTO) 0.1 10^3/uL (0.0-0.1); BASOPHILS % (AUTO) 1.3 %; EOSINOPHILS # (AUTO) 0.3 10^3/uL (0.0-0.7); EOSINOPHILS % (AUTO) 3.7 %; HGB - HEMOGLOBIN 12.6 g/dL (12.0-16.0); LYMPHOCYTES # (AUTO) 3.2 10^3/uL (1.5-3.5); MEAN CORPUSCULAR HEMOGLOBIN 31.4 pg (27.0-31.0); MEAN CORPUSCULAR HGB CONC 34.4 g/dL (32.0-36.0); MEAN CORPUSCULAR VOLUME 91.3 fL (81.0-99.0); MONOCYTES # (AUTO) 0.8 10^3/uL (0.0-1.0); MONOCYTES % (AUTO) 8.5 %; NEUTROPHILS # (AUTO) 4.8 10^3/uL (1.5-6.6); NEUTROPHILS % (AUTO) 51.5 %; PLT - PLATELET COUNT 307 10^3/uL (130-450); RED BLOOD COUNT 4.01 10^6/uL (4.20-5.40); RED CELL DISTRIBUTION WIDTH 13.8 % (12.0-15.0); WHITE BLOOD COUNT 9.3 x10^3/uL (4.8-10.8)
[2018-07-27 08:54] LABS: ALBUMIN 3.8 g/dL (3.2-5.5); ALBUMIN/GLOBULIN RATIO 1.1 (1.0-2.2); BILIRUBIN,TOTAL 0.4 mg/dL (0.2-1.0); CALCIUM 9.2 mg/dL (8.5-10.3); TOTAL PROTEIN 7.4 g/dL (6.7-8.2)
[2018-07-27] MEDS ORDERED: LIDOCAINE VISCOUS 2% 15 ML UDC MM STA (09:27)
[2018-07-27] MEDS ORDERED: SODIUM CHLORIDE 0.9% 1,000 ML IV ONE (09:27)
[2018-07-27] MEDS ORDERED: MAG HYDROX/AL HYDROX/SIMETH 30 ML UDC PO STA (09:27)
--- NOTE | 2018-07-27 09:30 | ED Physician Documentation ---
PD HPI CHEST PAIN - Stated complaint Stated Complaint: CHEST PAIN - Chief complaint Chief Complaint: Cardiac - History obtained from History obtained from: Patient, Family - History of Present Illness Timing - onset: Today Timing - onset during: Rest Timing - duration: Hours Timing - details: Abrupt onset, Still present Pain level now: 3 Quality: Sharp, Pain Location: Substernal, Left chest Radiation: Back. No: Jaw, Neck Improved by: Other (improved after taking morning carafate) Worsened by: No: Exertion, Inspiration, Eating, Movement, Palpation Associated symptoms: Feeling faint / dizzy, Cough. No: Shortness of air, Diaphoresis, Nausea, Vomiting, General Weakness, Palpitations Similar symptoms before: Diagnosis (GERD) Recently seen: Emergency Dept - Additional information Additional information: 73-year-old female with a history of GERD woke this morning early with chest pain similar to what she is had previously with her GERD and she did not feel well and when her pain did not resolve she felt she needed to come to the emergency department. She did take some Carafate prior to to leaving her house and she feels her pain is somewhat improved. She states that she has had a cough and congestion for the past month and that her blood sugars been running high. Review of Systems Constitutional: denies: Fever, Chills Eyes: denies: Decreased vision Ears: reports: Ear pain Nose: reports: Rhinorrhea / runny nose, Congestion Throat: denies: Sore throat Cardiac: reports: Chest pain / pressure. denies: Palpitations, Pedal edema, Calf pain Respiratory: reports: Cough. denies: Dyspnea GI: reports: Abdominal Pain. 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 HEENT: Cataracts, Tonsil/Adenoidectomy - Present Medications Home Medications: Ambulatory Orders Medication Instructions Recorded Confirmed Losartan [Cozaar] 50 mg PO BID 01/20/14 07/10/18 Metformin HCl 500 mg PO BID 01/20/14 07/10/18 Omeprazole 20 mg PO BID 01/20/14 07/10/18 Rizatriptan Benzoate [Maxalt Education Faculty Member] 5 mg PO ONCE PRN 01/20/14 07/10/18 Triamterene/Hydrochlorothiazid 1 cap PO DAILY 01/20/14 07/10/18 [Triamterene-Hctz 37.5-25 mg Cp] Zolpidem Tartrate [Ambien] 10 mg PO QPM 01/20/14 07/10/18 Dicyclomine HCl 20 mg PO DAILY 08/29/16 07/10/18 Ondansetron Odt [Zofran] 4 mg TL Q6H PRN #10 tablet 07/10/18 Lorazepam [Ativan] 1 mg PO Q6HR PRN #14 tablet 07/15/18 Sucralfate [Carafate] 1 gm PO ACHS #60 tablet 07/15/18 Azithromycin [Zithromax] 250 mg PO DAILY #6 tablet 07/27/18 - Allergies Allergies/Adverse Reactions: Allergies Allergy/AdvReac Type Severity Reaction Status Date / Time lisinopril Allergy cough Verified 07/27/18 09:11 meperidine HCl * Allergy Rash Verified 07/27/18 09:11 [From Demerol] propofol AdvReac Severe Anxiety Verified 07/27/18 09:11 ampicillin AdvReac diarrhea Verified 07/27/18 09:11 atorvastatin calcium * AdvReac Respiratory Verified 07/27/18 09:11 [From Lipitor] ezetimibe [From Zetia] AdvReac Cramps Verified 07/27/18 09:11 ibuprofen [From Motrin] AdvReac Cramps Verified 07/27/18 09:11 pitavastatin calcium * AdvReac Cramps Verified 07/27/18 09:11 [From Livalo] ranitidine [From Zantac] AdvReac tired,blurry Verified 07/27/18 09:11 vision rofecoxib [From Vioxx] AdvReac Respiratory Verified 07/27/18 09:11 simvastatin [From Zocor] AdvReac Cramps Verified 07/27/18 09:11 sulfamethoxazole AdvReac Nausea Verified 07/27/18 09:11 [From Septra] trimethoprim [From Septra] AdvReac Nausea Verified 07/27/18 09:11 paper tape Allergy Unknown Uncoded 07/27/18 09:11 - Social History Does the pt smoke?: No Smoking Status: Never smoker Does the pt drink ETOH?: Yes Does the pt have substance abuse?: No - Immunizations Immunizations are current?: Yes - POLST Patient has POLST: No PD ED PE NORMAL - Vitals Vital signs reviewed: Yes (hypertensive mild ) - General General: Alert and oriented X 3, Well developed/nourished - HEENT HEENT: Atraumatic, PERRL, EOMI, Pharynx benign, Other (right TM is erythematous to the umbo with rounding of the umbo the left is clear. mucous membranes are dry. 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, No motor deficit, No sensory deficit, Normal speech Eye Opening: Spontaneous Motor: Obeys Commands Verbal: Oriented GCS Score: 15 - Psych Psych: Normal mood, Normal affect Results - Vitals Vitals: Vital Signs - 24 hr 07/27/18 07/27/18 07/27/18 08:18 09:00 09:30 Temperature 36.8 C Heart Rate 69 62 70 Respiratory 18 18 14 Rate Blood Pressure 148/64 H 144/69 H 157/65 H O2 Saturation 97 97 98 Oxygen O2 Source Room air - EKG (time done) 0818 Rate: Rate (enter#) (66) QRS: Low voltage Ischemia: No: ST depression Compare to prior EKG: Unchanged from prior EKG (SPT 9-2-14 no changes) Computer interpretation: Disagree with computer (I do not see lateral ST depression) - Labs Labs: Laboratory Tests 07/27/18 07/27/18 07/27/18 08:20 08:20 08:20 WBC 9.3 RBC 4.01 L Hgb 12.6 Hct 36.6 L MCV 91.3 MCH 31.4 H MCHC 34.4 RDW 13.8 Plt Count 307 MPV 8.0 Neut # (Auto) 4.8 Lymph # (Auto) 3.2 [place] # (Auto) 0.8 Eos # (Auto) 0.3 Baso # (Auto) 0.1 Absolute Nucleated RBC 0.00 Nucleated RBC % 0.0 Sodium 134 L Potassium 3.3 L Chloride 98 L Carbon Dioxide 23 Anion Gap 13.0 BUN 23 H Creatinine 1.0 Estimated GFR (MDRD) 55 L Glucose 151 H Calcium 9.2 Total Bilirubin 0.4 AST 33 ALT 38 Alkaline Phosphatase 64 Troponin I < 0.04 Total Protein 7.4 Albumin 3.8 Globulin 3.6 Albumin/Globulin Ratio 1.1 Lipase 65 H Urine Color Urine Clarity Urine pH Ur Specific [place] Urine Protein Urine Glucose (UA) Urine Ketones Urine Occult Blood Urine Nitrite Urine Bilirubin Urine Urobilinogen Ur Leukocyte Esterase Ur Microscopic Review Urine Culture Comments 07/27/18 09:47 WBC RBC Hgb Hct MCV MCH MCHC RDW Plt Count MPV Neut # (Auto) Lymph # (Auto) [place] # (Auto) Eos # (Auto) Baso # (Auto) Absolute Nucleated RBC Nucleated RBC % Sodium Potassium Chloride Carbon Dioxide Anion Gap BUN Creatinine Estimated GFR (MDRD) Glucose Calcium Total Bilirubin AST ALT Alkaline Phosphatase Troponin I Total Protein Albumin Globulin Albumin/Globulin Ratio Lipase Urine Color YELLOW Urine Clarity CLEAR Urine pH 6.0 Ur Specific [place] <=1.005 Urine Protein NEGATIVE Urine Glucose (UA) NEGATIVE Urine Ketones NEGATIVE Urine Occult Blood NEGATIVE Urine Nitrite NEGATIVE Urine Bilirubin NEGATIVE Urine Urobilinogen 0.2 (NORMAL) Ur Leukocyte Esterase NEGATIVE Ur Microscopic Review NOT INDICATED Urine Culture Comments NOT INDICATED Procedures - IVC sono (time) 0925 Bedside IVC sono: IVC measures (cm) (1.10), IVC collapsed c insp (cm) (complete), Dehydration (est 1+ liter deficit) PD MEDICAL DECISION MAKING - ED course Complexity details: reviewed old records, reviewed results, re-evaluated patient, considered differential, d/w patient, d/w family ED course: 73-year-old female with history of GERD has again developed chest pain that is again relieved with use of viscous lidocaine and Mylanta. She was not feeling well when she arrived here she is found to be a bit dehydrated and she does have a cough that she has had for more than a month and on examination today she has a right otitis. She is recently been on a course of Augmentin and that seems may be to upset her stomach and so we will change to azithromycin. Departure - Departure Disposition: 01 Home, Self Care Clinical Impression: Dehydration GERD (gastroesophageal reflux disease) Qualifiers: Esophagitis presence: esophagitis presence not specified Qualified Code(s): K21.9 - Gastro-esophageal reflux disease without esophagitis Otitis media Qualifiers: Otitis media type: suppurative Chronicity: acute Laterality: right Recurrence: not specified as recurrent Spontaneous tympanic membrane rupture: without spontaneous rupture Qualified Code(s): H66.001 - Acute suppurative otitis media without spontaneous rupture of ear drum, right ear Condition: Stable Instructions: ED GERD, ED Dehydration, ED Otitis Media Acute Adult Follow-Up: Chrissy Cordero PA-C [Primary Care Provider] - Prescriptions: Azithromycin [Zithromax] 250 mg PO DAILY #6 tablet
[2018-07-27 10:02] LABS: BILIRUBIN,URINE NEGATIVE (NEGATIVE); GLUCOSE, URINE (UA) NEGATIVE (NEGATIVE); KETONES,URINE (UA) NEGATIVE (NEGATIVE); LEUKOCYTE ESTERASE, URINE NEGATIVE (NEGATIVE); NITRITE,URINE NEGATIVE (NEGATIVE); OCCULT BLOOD,URINE NEGATIVE (NEGATIVE); PROTEIN,URINE NEGATIVE (NEGATIVE); UROBILINOGEN,URINE 0.2 (NORMAL) E.U./dL (NORMAL)
[2018-07-27 10:15] LABS: CLARITY,URINE CLEAR (CLEAR)
--- NOTE | 2018-07-27 10:17 | XRAY Report ---
Reason: chest pain Procedure Date: 07/27/2018 Accession Number: [id number] / [id number] Procedure: XR - Chest 1 View X-Ray CPT Code: 50473 FULL RESULT: EXAM: CHEST RADIOGRAPHY EXAM DATE: 07/27/2018 10:00 AM. CLINICAL HISTORY: Chest pain. Onset of severe chest pain behind left breast this morning. COMPARISON: 12/11/2012 chest x-ray. 01/03/2013 CT. TECHNIQUE: 1 view. FINDINGS: Lungs/Pleura: Hazy increased opacity at right thoracic base lateral to cardiac apex. This may be related to overlying soft tissues on this slightly rotated frontal projection exam. No loss of diaphragmatic silhouette is seen. Lungs otherwise appear clear. Heart size normal for rotated portable technique. Mediastinum: Within exam limitations, the cardiomediastinal contour is normal. Other: None. IMPRESSION: 1. Rotated frontal projection exam with hazy increased opacity at left chest base lateral to cardiac apex. This may be related to overlying soft tissues. Repeat examination recommended with standard PA and lateral technique for more complete assessment. Alternatively, if indicated clinically, CT could also be considered. 2. Exam otherwise as above. RADIA
[2018-07-27 11:00] VITALS: BP 128/56
== END 2018-07-27 11:04 | disposition home or self-care (01) ==
LOC: ED 08:12
DX: E86.0 Dehydration (principal); K21.9 Gastro-esophageal reflux disease without esophagitis; H66.001 Acute suppurative otitis media without spontaneous rupture of ear drum, right ear; R05 Cough; I10 Essential (primary) hypertension; E11.9 Type 2 diabetes mellitus without complications; Z79.84 Long term (current) use of oral hypoglycemic drugs
CPT/HCPCS: 36415; 71045; 80053; 81003; 83690; 84484; 85025; 93005; 96360; 99284; A9270; 81001; 87086

== ENCOUNTER 2018-07-30 14:21 | Outpatient (CLI) | payer MEDICARE, OTHER ==
--- NOTE | 2018-07-30 15:17 | XRAY Report ---
Reason: ABNORMAL CHEST XRAY Procedure Date: 07/30/2018 Accession Number: [id number] / [id number] Procedure: WCP - Chest 2 View X-Ray CPT Code: 33246 FULL RESULT: EXAM: CHEST RADIOGRAPHY. EXAM DATE: 07/30/2018 02:49 PM. CLINICAL HISTORY: Abnormal chest x-ray. COMPARISON: CHEST 1 VIEW 07/27/2018 9:44 AM. TECHNIQUE: 2 views. FINDINGS: Lungs/Pleura: No focal opacities evident. No pleural effusion. No pneumothorax. Normal volumes. Soft tissue density at the left cardiophrenic angle consistent with pericardial fat. Mediastinum: Heart and mediastinal contours are unremarkable. Other: Clips in the right upper quadrant from prior cholecystectomy. IMPRESSION: Normal 2-view chest radiography. RADIA
== END 2018-07-30 14:22 | disposition home or self-care (01) ==
LOC: DI.WCP 14:21
PROVIDERS: ATTEND Physician Assistant Medical
DX: R91.8 Other nonspecific abnormal finding of lung field (principal)
CPT/HCPCS: 71046

== ENCOUNTER 2018-08-02 09:10 | Outpatient (CLI) | payer MEDICARE, OTHER | END 2018-08-02 23:59 | LOC: LAB.WCP 09:10 | PROVIDERS: ATTEND Nurse Practitioner | DX: R30.0 Dysuria (principal) | CPT/HCPCS: 87086; 87181 ==

== ENCOUNTER 2018-10-28 13:21 | Outpatient (CLI) | payer MEDICARE, OTHER ==
[2018-10-28 19:06] LABS: CREATININE 1.3 mg/dL (0.4-1.0)
[2018-10-28 19:44] LABS: HB2 TOTAL 14.5 g/dL; HEMOGLOBIN A1C 0.84 g/dL; HEMOGLOBIN A1C % 7.5 % (4.6-6.2)
== END 2018-10-28 13:22 | disposition home or self-care (01) ==
LOC: LAB.WCP 13:21
PROVIDERS: ATTEND Physician Assistant Medical
DX: E11.9 Type 2 diabetes mellitus without complications (principal)
CPT/HCPCS: 36415; 80048; 83036

== ENCOUNTER 2019-01-23 13:48 | Outpatient (CLI) | payer MEDICARE, OTHER ==
--- NOTE | 2019-01-23 15:35 | Mammography Report ---
Reason: SCREENING MAMMO Procedure Date: 01/23/2019 Accession Number: [id number] / [id number] Procedure: MGN - Screening Mammo Dig Bilat CPT Code: FULL RESULT: EXAM: Screening Mammo Dig Bilat DATE: 01/23/2019 2:12 PM CLINICAL HISTORY: Routine screening TECHNIQUE: (B) - Bilateral CC and MLO views were obtained. COMPARISON: 05/01/2017, 05/07/2014, 08/21/2012 and 07/06/2011 PARENCHYMAL PATTERN: (A) - The breasts demonstrate scattered fibroglandular densities bilaterally. FINDINGS: No significant interval change. There are no suspicious masses, calcifications, or areas of distortion. Innumerable scattered bilateral calcifications are stable. IMPRESSION: Benign findings. BI-RADS category 2. RECOMMENDATION: (ANNUAL) - Recommend routine annual screening mammography. BI-RADS CATEGORY: (2) - Benign Findings. STANDARD QUALIFYING STATEMENTS: 1. This examination was not reviewed with the aid of Computer-Aided Detection (CAD). 2. A negative or benign imaging report should not preclude biopsy if clinically suspicious findings are present. 3. Dense breasts may obscure an underlying neoplasm. 4. This examination was reviewed without the aid of 3D breast imaging (tomosynthesis).
== END 2019-01-23 13:49 | disposition home or self-care (01) ==
LOC: DI.N 13:48
DX: Z12.31 Encounter for screening mammogram for malignant neoplasm of breast (principal)
CPT/HCPCS: 77067

== ENCOUNTER 2019-01-29 08:00 | Outpatient (CLI) | payer MEDICARE, OTHER ==
[2019-01-29 19:20] LABS: ALBUMIN 4.2 g/dL (3.2-5.5); ALBUMIN/GLOBULIN RATIO 1.1 (1.0-2.2); ALKALINE PHOSPHATASE 68 IU/L (42-121); ALT ALANINE AMINOTRANSFERASE 29 IU/L (10-60); AST ASPARTATE AMINOTRANSFERASE 26 IU/L (10-42); BILIRUBIN,TOTAL 0.8 mg/dL (0.2-1.0); BUN - BLOOD UREA NITROGEN 33 mg/dL (6-20); CALCIUM 9.4 mg/dL (8.5-10.3); CARBON DIOXIDE - CO2 24 mmol/L (21-32); CHLORIDE 105 mmol/L (101-111); CHOL/HDL RATIO 6.1 (<4.4); CHOLESTEROL 244 mg/dL; CREATININE 1.7 mg/dL (0.4-1.0); GFR - MDRD 30 (>89); GLUCOSE 133 mg/dL (70-100); HDL CHOLESTEROL 40 mg/dL; LDL CHOLESTEROL,CALCULATED 155 mg/dL; LDL/HDL RATIO 3.9 (<4.4); SODIUM 138 mmol/L (135-145); TOTAL PROTEIN 7.9 g/dL (6.7-8.2); VLDL CHOLESTEROL 49 mg/dL
[2019-01-29 19:28] LABS: HB2 TOTAL 13.3 g/dL; HEMOGLOBIN A1C 0.65 g/dL; HEMOGLOBIN A1C % 6.6 % (4.6-6.2)
== END 2019-01-29 23:59 | disposition home or self-care (01) ==
LOC: LAB.WCP 08:00
PROVIDERS: ATTEND Physician Assistant Medical
DX: E11.9 Type 2 diabetes mellitus without complications (principal)
CPT/HCPCS: 36415; 80053; 80061; 83036; 83721

== ENCOUNTER 2019-02-20 08:00 | Outpatient (CLI) | payer MEDICARE, OTHER ==
[2019-02-20 19:08] LABS: CREATININE 1.2 mg/dL (0.4-1.0)
[2019-02-20 19:20] LABS: THYROID STIMULATING HORMONE 3.64 uIU/mL (0.34-5.60)
[2019-02-20 19:24] LABS: FREE T4 (FREE THYROXINE) 0.84 ng/dL (0.58-1.64)
== END 2019-02-20 23:59 | disposition home or self-care (01) ==
LOC: LAB.WCP 08:00
PROVIDERS: ATTEND Psychiatry & Neurology Neurology
DX: R25.1 Tremor, unspecified (principal); N18.9 Chronic kidney disease, unspecified
CPT/HCPCS: 36415; 80048; 84439; 84443; 84481

== ENCOUNTER 2019-04-28 07:00 | Outpatient (CLI) | payer MEDICARE, OTHER ==
[2019-04-28 18:44] LABS: CALCIUM 9.5 mg/dL (8.5-10.3); CREATININE 1.2 mg/dL (0.4-1.0)
[2019-04-28 18:53] LABS: HB2 TOTAL 13.9 g/dL; HEMOGLOBIN A1C 0.74 g/dL
== END 2019-04-28 23:59 | disposition home or self-care (01) ==
LOC: LAB.R 07:00
PROVIDERS: ATTEND Physician Assistant Medical
DX: E11.9 Type 2 diabetes mellitus without complications (principal)
CPT/HCPCS: 36415; 80048; 83036

== ENCOUNTER 2019-05-05 08:00 | Outpatient (CLI) | payer MEDICARE, OTHER ==
[2019-05-05 18:33] LABS: CALCIUM 9.8 mg/dL (8.5-10.3); CREATININE 1.3 mg/dL (0.4-1.0)
[2019-05-05 18:41] LABS: HEMOGLOBIN A1C 0.73 g/dL; HEMOGLOBIN A1C % 6.9 % (4.6-6.2)
== END 2019-05-05 23:59 | disposition home or self-care (01) ==
LOC: LAB.WCP 08:00
PROVIDERS: ATTEND Physician Assistant Medical
DX: E11.9 Type 2 diabetes mellitus without complications (principal); G25.0 Essential tremor
CPT/HCPCS: 36415; 80048; 82607; 83036

== ENCOUNTER 2019-06-06 07:06 | Outpatient (CLI) | payer MEDICARE, OTHER ==
[2019-06-06 19:34] LABS: CALCIUM 9.4 mg/dL (8.5-10.3); CREATININE 1.1 mg/dL (0.4-1.0)
== END 2019-06-06 23:59 | disposition home or self-care (01) ==
LOC: LAB.WCP 07:06
PROVIDERS: ATTEND Physician Assistant Medical
DX: N18.9 Chronic kidney disease, unspecified (principal)
CPT/HCPCS: 36415; 80048

== ENCOUNTER 2019-07-23 14:55 | Outpatient (CLI) | payer MEDICARE, OTHER ==
[2019-07-23 19:18] LABS: ALBUMIN 4.3 g/dL (3.2-5.5); ALBUMIN/GLOBULIN RATIO 1.2 (1.0-2.2); ALKALINE PHOSPHATASE 61 IU/L (42-121); ALT ALANINE AMINOTRANSFERASE 30 IU/L (10-60); AST ASPARTATE AMINOTRANSFERASE 25 IU/L (10-42); BILIRUBIN,TOTAL 0.8 mg/dL (0.2-1.0); BUN - BLOOD UREA NITROGEN 24 mg/dL (6-20); CALCIUM 9.6 mg/dL (8.5-10.3); CARBON DIOXIDE - CO2 26 mmol/L (21-32); CHLORIDE 103 mmol/L (101-111); CHOL/HDL RATIO 5.7 (<4.4); CHOLESTEROL 264 mg/dL; GFR - MDRD 55 (>89); GLUCOSE 166 mg/dL (70-100); HDL CHOLESTEROL 46 mg/dL; LDL CHOLESTEROL,CALCULATED 176 mg/dL; LDL/HDL RATIO 3.8 (<4.4); SODIUM 137 mmol/L (135-145); TOTAL PROTEIN 7.8 g/dL (6.7-8.2); VLDL CHOLESTEROL 42 mg/dL
[2019-07-23 19:28] LABS: HB2 TOTAL 14.7 g/dL; HEMOGLOBIN A1C 0.81 g/dL; HEMOGLOBIN A1C % 7.2 % (4.6-6.2)
== END 2019-07-23 23:59 | disposition home or self-care (01) ==
LOC: LAB.WCP 14:55
PROVIDERS: ATTEND Physician Assistant Medical
DX: E11.9 Type 2 diabetes mellitus without complications (principal)
CPT/HCPCS: 36415; 80053; 80061; 83036; 83721

== ENCOUNTER 2019-10-01 15:03 | Outpatient (CLI) | payer MEDICARE, OTHER ==
--- NOTE | 2019-10-02 11:37 | Ultrasound Report ---
Reason: CEREBRAL INFARCTION, UNSPECIFIED Procedure Date: 10/01/2019 Accession Number: [id number] / [id number] Procedure: US - Carotid Doppler Complete CPT Code: Final Report FULL RESULT: EXAM: BILATERAL CAROTID AND VERTEBRAL ARTERY DUPLEX DOPPLER ULTRASOUND: EXAM DATE: 10/01/2019 03:57 PM CLINICAL HISTORY: Cerebral infarction, unspecified. COMPARISON: CAROTID DOPPLER COMPLETE 03/22/2017 2:06 PM. TECHNIQUE: Grayscale imaging, color Doppler, and duplex spectral Doppler were used to evaluate the carotid and vertebral arteries bilaterally. Static images were obtained. FINDINGS: Moderate atherosclerotic carotid artery plaquing bilaterally. Normal antegrade flow is present in bilateral vertebral arteries. VELOCITIES (cm/s): Right CCA mid: PSV 53 cm/sec CCA dist: PSV 46.3 cm/sec ICA prox: PSV 81.4 cm/sec, EDV 13 cm/sec ICA mid: PSV 66.8 cm/sec, EDV 14.4 cm/sec ICA dist: PSV 95.1 cm/sec, EDV 23.4 cm/sec ECA: PSV 79 cm/sec Vert: PSV 68.3 cm/sec ICA/CCA: 1.8 Left CCA mid: PSV 87.2 cm/sec CCA dist: PSV 91.1 cm/sec ICA prox: PSV 35.7 cm/sec, EDV 7.0 cm/sec ICA mid: PSV 60.6 cm/sec, EDV 13.7 cm/sec ICA dist: PSV 37.1 cm/sec, EDV 10.9 cm/sec ECA: PSV 35.7 cm/sec Vert: PSV 49.8 cm/sec ICA/CCA: 0.7 ICA diameter stenosis: Right: <50% by velocity and <70% by NASCET criteria. Left: <50% by velocity and <70% by NASCET criteria. IMPRESSION: 1. Moderate bilateral carotid artery plaquing. 2. In the right carotid artery there are no elevated carotid artery velocities to suggest hemodynamically significant stenosis. 3. In the left carotid artery there are no elevated carotid artery velocities to suggest hemodynamically significant stenosis. 4. Normal antegrade flow is present in bilateral vertebral arteries. General Recommendations: Stenosis =50% ICA - Follow-up ultrasound 6-12 months Stenosis <50% ICA - High Risk Patient with plaque - Follow-up ultrasound 1-2 years Normal Study but High Risk Patient - Follow-up ultrasound 3-5 years Management recommendations and diagnostic criteria are based on current IAC endorsed standards in Carotid Artery Stenosis: Grayscale and Doppler Ultrasound Diagnosis. Validated velocity measurements with angiographic measurements and velocity criteria are extrapolated from diameter data as defined by the Society of Radiologists in Ultrasound Consensus Conference Radiology 2003; 229;340-346. RADIA
== END 2019-10-01 15:04 | disposition home or self-care (01) ==
LOC: DI 15:03
PROVIDERS: ATTEND Psychiatry & Neurology Neurology
DX: I65.23 Occlusion and stenosis of bilateral carotid arteries (principal)
CPT/HCPCS: 93880

== ENCOUNTER 2019-11-04 15:07 | Outpatient (CLI) | payer MEDICARE, OTHER ==
[2019-11-04 19:01] LABS: ALBUMIN/GLOBULIN RATIO 1.1 (1.0-2.2); ALKALINE PHOSPHATASE 64 IU/L (42-121); ALT ALANINE AMINOTRANSFERASE 37 IU/L (10-60); AST ASPARTATE AMINOTRANSFERASE 32 IU/L (10-42); BUN - BLOOD UREA NITROGEN 26 mg/dL (6-20); CALCIUM 9.3 mg/dL (8.5-10.3); CARBON DIOXIDE - CO2 25 mmol/L (21-32); CHLORIDE 104 mmol/L (101-111); CHOL/HDL RATIO 4.6 (<4.4); CHOLESTEROL 237 mg/dL; CREATININE 1.2 mg/dL (0.4-1.0); GLUCOSE 215 mg/dL (70-100); HB2 TOTAL 13.9 g/dL; HDL CHOLESTEROL 51 mg/dL; HEMOGLOBIN A1C 0.86 g/dL; HEMOGLOBIN A1C % 7.8 % (4.6-6.2); LDL CHOLESTEROL,CALCULATED 160 mg/dL; LDL/HDL RATIO 3.1 (<4.4); SODIUM 138 mmol/L (135-145); TOTAL PROTEIN 7.5 g/dL (6.7-8.2); VLDL CHOLESTEROL 26 mg/dL
== END 2019-11-04 23:59 | disposition home or self-care (01) ==
LOC: LAB.WCP 15:07
PROVIDERS: ATTEND Physician Assistant Medical
DX: E11.9 Type 2 diabetes mellitus without complications (principal)
CPT/HCPCS: 36415; 80053; 80061; 83036; 83721

== ENCOUNTER → 2020-01-15 | Outpatient (CLI) | payer MEDICARE, OTHER ==
--- NOTE | 2020-01-15 17:41 | XRAY Report ---
PROCEDURE: Knee 3 View LT INDICATIONS: LEFT KNEE PAIN TECHNIQUE: 3 views of the left knee(s) were acquired. COMPARISON: None. FINDINGS: Bones: No fractures or dislocations. No suspicious bony lesions. Mild tricompartmental osteoarthrit is. Soft tissues: No joint effusion. No suspicious soft tissue calcifications. IMPRESSION: Mild left knee tricompartmental osteoarthritis. Reviewed by: Brenda Prater MD, PhD on 01/15/2020 5:39 PM PDT Approved by: Brenda Prater MD, PhD on 01/15/2020 5:39 PM PDT Station ID: [id number]
== END ==
LOC: DI.WCP 12:02
PROVIDERS: ATTEND Nurse Practitioner Family
DX: M17.12 Unilateral primary osteoarthritis, left knee (principal)

== ENCOUNTER 2020-01-23 08:00 | Outpatient (CLI) | payer MEDICARE, OTHER ==
[2020-01-23 18:56] LABS: ALBUMIN 4.3 g/dL (3.2-5.5); ALBUMIN/GLOBULIN RATIO 1.2 (1.0-2.2); BILIRUBIN,TOTAL 1.1 mg/dL (0.2-1.0); CALCIUM 9.3 mg/dL (8.5-10.3); CREATININE 1.4 mg/dL (0.4-1.0); TOTAL PROTEIN 7.8 g/dL (6.7-8.2)
[2020-01-23 20:24] LABS: HEMOGLOBIN A1c% 6.9 % (4.27-6.07)
== END 2020-01-23 23:59 | disposition home or self-care (01) ==
LOC: LAB.WCP 08:00
PROVIDERS: ATTEND Physician Assistant Medical
DX: E11.9 Type 2 diabetes mellitus without complications (principal)
CPT/HCPCS: 36415; 80053; 83036

== ENCOUNTER 2020-01-27 08:00 | Outpatient (CLI) | payer MEDICARE, OTHER ==
[2020-01-27 20:27] LABS: CREATININE,URINE 410.9 mg/dL; MICROALBUM/CREATININE RATIO,UR 4.9 ug/mg (<30.0)
== END 2020-01-27 23:59 | disposition home or self-care (01) ==
LOC: LAB.R 08:00
PROVIDERS: ATTEND Physician Assistant Medical
DX: E11.9 Type 2 diabetes mellitus without complications (principal)
CPT/HCPCS: 82043; 82570

== ENCOUNTER 2020-04-26 08:00 | Outpatient (CLI) | payer MEDICARE, OTHER ==
[2020-04-26 20:31] LABS: ALBUMIN 4.3 g/dL (3.2-5.5); ALBUMIN/GLOBULIN RATIO 1.1 (1.0-2.2); ALKALINE PHOSPHATASE 59 IU/L (42-121); ALT ALANINE AMINOTRANSFERASE 43 IU/L (10-60); AST ASPARTATE AMINOTRANSFERASE 44 IU/L (10-42); BILIRUBIN,TOTAL 1.2 mg/dL (0.2-1.0); BUN - BLOOD UREA NITROGEN 27 mg/dL (6-20); CALCIUM 9.9 mg/dL (8.5-10.3); CARBON DIOXIDE - CO2 25 mmol/L (21-32); CHLORIDE 103 mmol/L (101-111); CHOL/HDL RATIO 6.3 (<4.4); CHOLESTEROL 275 mg/dL; CREATININE 1.1 mg/dL (0.4-1.0); GLUCOSE 135 mg/dL (70-100); HDL CHOLESTEROL 44 mg/dL; LDL CHOLESTEROL,CALCULATED 188 mg/dL; LDL/HDL RATIO 4.3 (<4.4); SODIUM 137 mmol/L (135-145); TOTAL PROTEIN 8.1 g/dL (6.7-8.2); VLDL CHOLESTEROL 43 mg/dL
[2020-04-26 21:01] LABS: HEMOGLOBIN A1c% 7.1 % (4.27-6.07)
== END 2020-04-26 23:59 | disposition home or self-care (01) ==
LOC: LAB.WCP 08:00
PROVIDERS: ATTEND Physician Assistant Medical
DX: E11.9 Type 2 diabetes mellitus without complications (principal)
CPT/HCPCS: 36415; 80053; 80061; 83036; 83721

== ENCOUNTER 2020-05-27 14:22 | Outpatient (CLI) | payer MEDICARE, OTHER ==
--- NOTE | 2020-05-28 12:51 | Mammography Report ---
BILATERAL DIGITAL SCREENING MAMMOGRAM 3D/2D: 05/27/2020 CLINICAL: Family history of breast cancer. Routine screening. Comparison is made to exams dated: 01/23/2019 mammogram, 12/28/2017 mammogram, 05/24/2016 mammogram, 12/15 mammogram, 08/29/2013 mammogram, and 08/27/2012 mammogram - [facility]. The tis angela of both breasts is predominantly fatty. There are benign calcifications in both breasts. No significant masses, calcifications, or other findings are seen in either breast. There has been no significant interval change. IMPRESSION: BENIGN There is no mammographic evidence of malignancy. A 1 year screening mammogram is recommended. This exam was interpreted at Station ID: [id number]. NOTE: For mammograms, a report in lay terms will be sent to the patient. Approximately 15% of breast malignancies will not be visualized mammographically. In the management of a palpable breast mass, a negative mammogram must not discourage biopsy of a clinically suspicious lesion. Electronically Signed By: Jaime Miller acr/penrad:05/27/2020 16:56:42 ACR BI-RADS Category 2: Benign Finding(s) 3342F PARENCHYMAL PATTERN: (F) - The breast(s) demonstrate(s) diffuse fatty replacement. BI-RADS CATEGORY: (2) - 2 RECOMMENDATION: (ANNUAL) - Recommend routine annual screening mammography. [id number] 1 year screening LATERALITY: (B)
--- OUTSIDE RECORDS SUMMARY | 2020-06-02 01:15 | EXTERNAL MEDICAL SUMMARY RPT | Continuity of Care Document ---
:1945 Demographics Phone Unavailable Preferred Language Northern Irish Marital Status Unknown Congregation Affiliation Unknown Race Unknown Ethnic Group Unknown Author Organization [place] Address [address] [place] [address] Phone Care Team Providers Name Role Phone PA-C Unavailable Unavailable Young Unavailable Unavailable Problems date description facility 2020-04-26 00:00 TYPE 2 DIABETES MELLITUS [facility] WITHOUT COMPLICATIONS 2020-04-26 00:00:00 COMPREHENSIVE METABOLIC PANEL [facility] [place] [facility] 2020-04-26 00:00:00 LIPID SCREEN, FASTING [facility] 2020-04-26 00:00:00 HGBA1C [facility] Prim [facility]ari Care [facility] 2020-04-26 08:00 TYPE 2 DIABETES MELLITUS [facility] WITHOUT COMPLICATIONS 2020-04-27 00:00:00 COMPREHENSIVE METABOLIC PANEL [facility] [place] [facility] 2020-04-27 00:00:[facility] [place] 2020-04-27 00:00:00 HGBA1C [facility] Prim om[facility] [place] [facility] 2020-04-30 00:00:00 Alcohol intake [facility] Prim [facility] [place] [facility] 2020-04-30 00:00:00 Health-related behavior [facility] [place] [facility] 2020-04-30 00:00:00 [facility] [place] [facility] 2020-04-30 00:00:00 [facility] [place] [facility] 2020-04-30 00:00:00 Never smoker [facility] [place] [facility] 2020-04-30 00:00:00 Alcohol use [facility] [place] [facility] 2020-04-30 00:00:00 Tobacco [facility] [place] [facility] 2020-05-27 14:22 ENCNTR SCREEN MAMMOGRAM FOR [facility] MALIGNANT NEOPLASM OF BREAST 2020-05-27 14:45 ENCNTR SCREEN MAMMOGRAM FOR [facility] MALIGNANT NEOPLASM OF BREAST Allergies date description facility paper [facility] NO KNOWN ALLERGIES [facility] pit[facility]ox[facility] trim[facility]oprim [facility] prop[facility]ol [facility] simvastatin [facility] ranitidine [facility] ro[facility]coxib [facility] ezet[facility]ibe [facility] Medications date description facility null [facility] [place] [facility] null [facility] Prima [facility] [place] [facility] DICYCLOMINE HCL [facility] [place] [facility] DICYCLOMINE HCL [facility] [place] [facility] Procedures date description facility 2020-04-26 00:00:00 COMPREHENSIVE METABOLIC PANEL [facility] [place] [facility] date description facility 2020-04-26 00:00:00 LIPID SCREEN, FASTING [facility] P rimary [facility] [place] [facility] date description facility 2020-04-26 00:00:00 HGBA1C [facility] [place] [facility] date description facility 2020-04-26 00:00:00 [facility] [place] [facility] Results Social History date description facility 2020-04-30 00:00:00 [facility] smoker [facility] [place] [facility] Social History date description facility 2020-04-30 00:00:00 [facility] smoker [facility] [place] [facility] date description facility [id number]
== END 2020-05-27 14:23 | disposition home or self-care (01) ==
LOC: DI.N 14:22
DX: Z12.31 Encounter for screening mammogram for malignant neoplasm of breast (principal); Z80.3 Family history of malignant neoplasm of breast
CPT/HCPCS: 77067

== ENCOUNTER 2020-08-27 08:00 | Outpatient (CLI) | payer MEDICARE, OTHER ==
[2020-08-27 19:09] LABS: ALBUMIN 4.3 g/dL (3.2-5.5); ALBUMIN/GLOBULIN RATIO 1.2 (1.0-2.2); ALKALINE PHOSPHATASE 74 IU/L (42-121); ALT ALANINE AMINOTRANSFERASE 45 IU/L (10-60); AST ASPARTATE AMINOTRANSFERASE 40 IU/L (10-42); BUN - BLOOD UREA NITROGEN 23 mg/dL (6-20); CARBON DIOXIDE - CO2 27 mmol/L (21-32); CHLORIDE 100 mmol/L (101-111); CHOL/HDL RATIO 5.9 (<4.4); CHOLESTEROL 265 mg/dL; CREATININE 1.2 mg/dL (0.4-1.0); GFR - MDRD 44 (>89); GLUCOSE 206 mg/dL (70-100); HDL CHOLESTEROL 45 mg/dL; LDL CHOLESTEROL,CALCULATED 169 mg/dL; LDL/HDL RATIO 3.8 (<4.4); POTASSIUM 4.5 mmol/L (3.5-5.0); SODIUM 137 mmol/L (135-145); TRIGLYCERIDES 255 mg/dL; VLDL CHOLESTEROL 51 mg/dL
[2020-08-27 19:25] LABS: BILIRUBIN,TOTAL 0.9 mg/dL (0.2-1.0)
[2020-08-27 20:48] LABS: ESTIMATED AVERAGE GLUCOSE 177 mg/dL (70-100); HEMOGLOBIN A1c% 7.8 % (4.27-6.07)
== END 2020-08-27 23:59 | disposition home or self-care (01) ==
LOC: LAB.WCP 08:00
PROVIDERS: ATTEND Physician Assistant Medical
DX: E11.9 Type 2 diabetes mellitus without complications (principal)
CPT/HCPCS: 36415; 80053; 80061; 83036; 83721

== ENCOUNTER 2020-11-26 08:00 | Outpatient (CLI) | payer MEDICARE, OTHER ==
[2020-11-26 17:54] LABS: CALCIUM 9.7 mg/dL (8.5-10.3); CREATININE 1.2 mg/dL (0.4-1.0); POTASSIUM 4.2 mmol/L (3.5-5.0)
[2020-11-26 20:32] LABS: ESTIMATED AVERAGE GLUCOSE 203 mg/dL (70-100); HEMOGLOBIN A1c% 8.7 % (4.27-6.07)
== END 2020-11-26 23:59 | disposition home or self-care (01) ==
LOC: LAB.WCP 08:00
PROVIDERS: ATTEND Physician Assistant Medical
DX: E11.9 Type 2 diabetes mellitus without complications (principal)
CPT/HCPCS: 36415; 80048; 83036

== ENCOUNTER 2021-03-03 10:13 | Outpatient (CLI) | payer MEDICARE, OTHER ==
[2021-03-03 12:16] LABS: ESTIMATED AVERAGE GLUCOSE 166 mg/dL (70-100); HEMOGLOBIN A1c% 7.4 % (4.27-6.07)
[2021-03-03 12:19] LABS: CALCIUM 9.7 mg/dL (8.5-10.3); CREATININE 1.4 mg/dL (0.4-1.0); POTASSIUM 4.1 mmol/L (3.5-5.0)
== END 2021-03-03 23:59 | disposition home or self-care (01) ==
LOC: LAB.WCP 10:13
PROVIDERS: ATTEND Physician Assistant Medical
DX: E11.9 Type 2 diabetes mellitus without complications (principal)
CPT/HCPCS: 36415; 80048; 83036

== ENCOUNTER 2021-06-03 08:00 | Outpatient (CLI) | payer MEDICARE, OTHER ==
[2021-06-03 18:30] LABS: ALBUMIN 4.1 g/dL (3.2-5.5); ALBUMIN/GLOBULIN RATIO 1.1 (1.0-2.2); ALKALINE PHOSPHATASE 70 IU/L (42-121); ALT ALANINE AMINOTRANSFERASE 29 IU/L (10-60); AST ASPARTATE AMINOTRANSFERASE 28 IU/L (10-42); BILIRUBIN,TOTAL 1.1 mg/dL (0.2-1.0); BUN - BLOOD UREA NITROGEN 27 mg/dL (6-20); CALCIUM 9.6 mg/dL (8.5-10.3); CARBON DIOXIDE - CO2 26 mmol/L (21-32); CHLORIDE 101 mmol/L (101-111); CHOL/HDL RATIO 6.2 (<4.4); CHOLESTEROL 262 mg/dL; CREATININE 1.2 mg/dL (0.4-1.0); GFR - MDRD 44 (>89); GLUCOSE 173 mg/dL (70-100); HDL CHOLESTEROL 42 mg/dL; LDL CHOLESTEROL,CALCULATED 183 mg/dL; LDL/HDL RATIO 4.4 (<4.4); POTASSIUM 4.3 mmol/L (3.5-5.0); SODIUM 137 mmol/L (135-145); TOTAL PROTEIN 7.7 g/dL (6.7-8.2); TRIGLYCERIDES 187 mg/dL; VLDL CHOLESTEROL 37 mg/dL
[2021-06-03 18:42] LABS: CREATININE,URINE 184.6 mg/dL; MICROALBUM/CREATININE RATIO,UR 2.7 ug/mg (<30.0); MICROALBUMIN,URINE 0.5 mg/dL (0-300.0)
[2021-06-03 20:11] LABS: ESTIMATED AVERAGE GLUCOSE 157 mg/dL (70-100); HEMOGLOBIN A1c% 7.1 % (4.27-6.07)
== END 2021-06-03 23:59 | disposition home or self-care (01) ==
LOC: LAB.WCP 08:00
PROVIDERS: ATTEND Physician Assistant Medical
DX: E11.9 Type 2 diabetes mellitus without complications (principal)
CPT/HCPCS: 36415; 80053; 80061; 82043; 82570; 83036; 83721

== ENCOUNTER 2021-07-25 12:40 | Outpatient (CLI) | payer MEDICARE, OTHER ==
--- NOTE | 2021-07-26 07:23 | Mammography Report ---
BILATERAL DIGITAL SCREENING MAMMOGRAM 3D/2D: 07/25/2021 CLINICAL: Routine screening. Comparison is made to exams dated: 05/27/2020 mammogram, 01/23/2019 mammogram, 12/28/2017 mammogram, 2016 mammogram, 12/15/2014 mammogram, and 08/29/2013 mammogram - [facility]. There a re scattered fibroglandular elements in both breasts. There are benign calcifications in both breasts. No significant masses, calcifications, or other findings are seen in either breast. There has been no significant interval change. IMPRESSION: BENIGN There is no mammographic evidence of malignancy. A 1 year screening mammogram is recommended. This exam was interpreted at Station ID: [id number]. NOTE: For mammograms, a report in lay terms will be sent to the patient. Approximately 15% of breast malignancies will not be visualized mammographically. In the management of a palpable breast mass, a negative mammogram must not discourage biopsy of a clinically suspicious lesion. Electronically Signed By: Valentino grullon/pablo:07/25/2021 16:23:06 ACR BI-RADS Category 2: Benign Finding(s) 3342F PARENCHYMAL PATTERN: (A) - The breast(s) demonstrate(s) scattered fibroglandular densities. BI-RADS CATEGORY: (2) - 2 RECOMMENDATION: (ANNUAL) - Recommend routine annual screening mammography. [id number] 1 year screening LATERALITY: (B)
== END 2021-07-25 12:41 | disposition home or self-care (01) ==
LOC: DI.N 12:40
DX: Z12.31 Encounter for screening mammogram for malignant neoplasm of breast (principal)

== ENCOUNTER 2021-11-10 16:14 | Emergency (ER) | payer MEDICARE, OTHER ==
[2021-11-10] MEDS ORDERED: HYDROmorphone 1 MG/ML CARPUJECT IM STA (17:56)
[2021-11-10] MEDS ORDERED: predniSONE 20 MG TABLET PO STA (17:56)
--- NOTE | 2021-11-10 18:04 | ED Physician Documentation ---
History of Present Illness - Stated complaint Stated Complaint: FALL,KNEE PX - Chief complaint Chief Complaint: Trauma Ext - Additonal information Additional information: 76-year-old female who has a history of diabetes presents the emergency department for evaluation of acute on chronic low back pain as well as right knee pain. She reports mechanical ground-level fall 1 week ago when she tripped while carrying packages. She fell directly onto the knee. Since then she has been having a flare of her low back pain and sciatica. There have been no fevers, saddle anesthesia. She is ambulatory though quite antalgic and painful. She has previously been seen through a back pain specialist for her sciatica in the past. She has marginal control of her diabetes. Last A1c was 8.4. Last blood glucose yesterday a.m. was 168. Review of Systems Constitutional: denies: Chills Cardiac: reports: Reviewed and negative Respiratory: reports: Reviewed and negative GI: reports: Reviewed and negative Skin: reports: Reviewed and negative Musculoskeletal: reports: Back pain, Joint pain Neurologic: reports: Reviewed and negative PD PAST MEDICAL HISTORY - Past Medical History Cardiovascular: Hypertension, High cholesterol Neuro: Headaches, Migraines Endocrine/Autoimmune: Type 2 diabetes GI: GERD, Chronic diarrhea, Chronic constipation : None HEENT: Chronic vision loss Psych: Depression, Anxiety Musculoskeletal: Other - Past Surgical History Past Surgical History: Yes General: Cholecystectomy, Appendectomy, Colonoscopy, EGD /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: Hysterectomy HEENT: Cataracts, Tonsil/Adenoidectomy - Present Medications Home Medications: Ambulatory Orders Medication Instructions Recorded Confirmed Losartan [Cozaar] 50 mg PO BID 01/20/14 07/10/18 Metformin HCl 500 mg PO BID 01/20/14 07/10/18 Omeprazole 20 mg PO BID 01/20/14 07/10/18 Rizatriptan Benzoate [[employer]] 5 mg PO ONCE PRN 01/20/14 07/10/18 Triamterene/Hydrochlorothiazid 1 cap PO DAILY 01/20/14 07/10/18 [Triamterene-Hctz 37.5-25 mg Cp] Zolpidem Tartrate [Ambien] 10 mg PO QPM 01/20/14 07/10/18 Dicyclomine HCl 20 mg PO DAILY 08/29/16 07/10/18 Ondansetron Odt [Zofran] 4 mg TL Q6H PRN #10 tablet 07/10/18 Lorazepam [Ativan] 1 mg PO Q6HR PRN #14 tablet 07/15/18 Sucralfate [Carafate] 1 gm PO ACHS #60 tablet 07/15/18 Azithromycin [Zithromax] 250 mg PO DAILY #6 tablet 07/27/18 predniSONE [Deltasone] 40 mg PO DAILY 3 Days #6 tablet 11/10/21 - Allergies Allergies/Adverse Reactions: Allergies Allergy/AdvReac Type Severity Reaction Status Date / Time lisinopril Allergy cough Verified 11/10/21 16:24 meperidine HCl * Allergy Rash Verified 11/10/21 16:24 [From Demerol] propofol AdvReac Severe Anxiety Verified 11/10/21 16:24 ampicillin AdvReac diarrhea Verified 11/10/21 16:24 atorvastatin calcium * AdvReac Respiratory Verified 11/10/21 16:24 [From Lipitor] ezetimibe [From Zetia] AdvReac Cramps Verified 11/10/21 16:24 ibuprofen [From Motrin] AdvReac Cramps Verified 11/10/21 16:24 pitavastatin calcium * AdvReac Cramps Verified 11/10/21 16:24 [From Livalo] ranitidine [From Zantac] AdvReac tired,blurry Verified 11/10/21 16:24 vision rofecoxib [From Vioxx] AdvReac Respiratory Verified 11/10/21 16:24 simvastatin [From Zocor] AdvReac Cramps Verified 11/10/21 16:24 sulfamethoxazole AdvReac Nausea Verified 11/10/21 16:24 [From Septra] trimethoprim [From Septra] AdvReac Nausea Verified 11/10/21 16:24 paper tape Allergy Unknown Uncoded 11/10/21 16:24 - Social History Does the pt smoke?: No Smoking Status: Never smoker Does the pt drink ETOH?: Yes Does the pt have substance abuse?: No - Immunizations Immunizations are current?: Yes - POLST Patient has POLST: No PD ED PE EXPANDED - General General: Alert, No acute distress, Other (Obese) - Back Back: Soft tissue tenderness (Right lower paraspinous soft tissue tenderness. Focal tenderness at the SI point right side. Normal forward flexion. Positive straight leg exam on the right. Motor strength is 5 of 5.) - Extremities Extremities: Right knee (No swelling ecchymosis or signs of trauma. No laxity on testing. Normal flexion and extension.) Results - Vitals Vitals: Vital Signs - 24 hr 11/10/21 16:21 Temperature 36 C L Heart Rate 63 Respiratory 16 Rate Blood Pressure 125/68 O2 Saturation 97 Oxygen O2 Source Room air - Rads (name of study) Right knee Radiology: EMP read indepedently (No acute fracture or dislocation. He does have some osteoarthritis) PD MEDICAL DECISION MAKING - ED course Complexity details: reviewed results, re-evaluated patient, considered differential, d/w patient ED course: 76-year-old female who has a history of chronic low back pain/sciatica in the setting of diabetes presents for acute on chronic back pain as well as right knee pain after a mechanical ground-level fall 1 week ago. She has point tenderness at the right SI joint. She does have positive straight leg exam. With the exception of age no red flags. Given the previously known history of sciatica will defer any advanced imaging today. X-ray of the knee per my interpretation shows no acute fracture though she does have some moderate arthritis. Patient will be started on a 4-day course of steroids first dose given here in the emergency department. Did make the recommendation follow-up with PCP as she would likely benefit from referral to her back pain specialist again. Emergent return precautions otherwise discussed Departure - Departure Disposition: 01 Home, Self Care Clinical Impression: Fall from ground level Low back pain with sciatica Qualifiers: Chronicity: unspecified Back pain laterality: right Sciatica laterality: sciatica of right side Qualified Code(s): M54.41 - Lumbago with sciatica, right side Right knee pain Qualifiers: Chronicity: acute Qualified Code(s): M25.561 - Pain in right knee Instructions: ED Sciatica Follow-Up: Chrissy Cordero PA-C [Primary Care Provider] - Prescriptions: predniSONE [Deltasone] 40 mg PO DAILY 3 Days #6 tablet Comments: You are seen today for pain in your low back as well as her right knee after a fall 1 week ago. As we discussed at the bedside it does sound as though you have exacerbated your previously known history of sciatica. In order to help manage this we are starting you on a few days of a steroid which can help with pain and inflammation. This will also help with the knee pain. My interpretation of your knee x-ray is that there is no fracture or dislocation though you do seem to be developing arthritis in the knee which marie likely triggered worsening pain. Your primary care doctor may want to make a referral for you to your back pain specialist for your sciatica as you have been previously treated for this before. Over the next week or so I do recommend that you use your walker at home to make sure that you are stable and do not have any further falls. While you are on the prednisone you may notice that your fasting blood sugars are a little higher than they typically would be. This will resolve when she stops the steroids. If at any point you have sugars in excess of 400, have uncontrolled vomiting or fevers then please return immediately to the ER for second evaluation.
[2021-11-10 18:22] VITALS: BP 160/78
--- NOTE | 2021-11-10 18:24 | XRAY Report ---
PROCEDURE: Knee 4 View RT INDICATIONS: Trauma TECHNIQUE: 4 views of the right knee(s) were acquired. COMPARISON: None. FINDINGS: Bones: Possible nondisplaced lateral tibial plateau fracture involving the tibial eminence. No dislo cations. No suspicious bony lesions. Soft tissues: Small joint effusion. No suspicious soft tissue calcifications. IMPRESSION: Possible nondisplaced lateral tibial plateau fracture. There is a small knee joint effus ion. If clinically indicated, CT Reviewed by: Lacey Garay MD on 11/10/2021 6:23 PM PDT Approved by: Lacey Garay MD on 11/10/2021 6:23 PM PDT Station ID: [id number]
== END 2021-11-10 18:28 | disposition home or self-care (01) ==
LOC: ED 16:14
DX: M54.41 Lumbago with sciatica, right side (principal); M25.561 Pain in right knee; G89.29 Other chronic pain; E11.9 Type 2 diabetes mellitus without complications; Z79.84 Long term (current) use of oral hypoglycemic drugs; I10 Essential (primary) hypertension
CPT/HCPCS: 73564; 96372; 99283; J1170; J7512

== ENCOUNTER 2022-02-23 09:28 | Outpatient (CLI) | payer MEDICARE, OTHER ==
[2022-02-23 12:37] LABS: ALBUMIN 4.4 g/dL (3.2-5.5); ALBUMIN/GLOBULIN RATIO 1.3 (1.0-2.2); ALKALINE PHOSPHATASE 72 IU/L (42-121); ALT ALANINE AMINOTRANSFERASE 31 IU/L (10-60); AST ASPARTATE AMINOTRANSFERASE 29 IU/L (10-42); BILIRUBIN,TOTAL 1.1 mg/dL (0.2-1.0); BUN - BLOOD UREA NITROGEN 18 mg/dL (6-20); CALCIUM 9.6 mg/dL (8.5-10.3); CARBON DIOXIDE - CO2 27 mmol/L (21-32); CHLORIDE 103 mmol/L (101-111); CHOL/HDL RATIO 6.2 (<4.4); CHOLESTEROL 259 mg/dL; CREATININE 1.3 mg/dL (0.4-1.0); GFR - MDRD 40 (>89); GLUCOSE 157 mg/dL (70-100); HDL CHOLESTEROL 42 mg/dL; LDL CHOLESTEROL,CALCULATED 174 mg/dL; LDL/HDL RATIO 4.1 (<4.4); POTASSIUM 4.1 mmol/L (3.5-5.0); SODIUM 137 mmol/L (135-145); TOTAL PROTEIN 7.7 g/dL (6.7-8.2); TRIGLYCERIDES 213 mg/dL; VLDL CHOLESTEROL 43 mg/dL
[2022-02-23 12:47] LABS: ESTIMATED AVERAGE GLUCOSE 151 mg/dL (70-100); HEMOGLOBIN A1c% 6.9 % (4.27-6.07)
== END 2022-02-23 09:29 | disposition home or self-care (01) ==
LOC: LAB.N 09:28
PROVIDERS: ATTEND Physician Assistant Medical
DX: E11.9 Type 2 diabetes mellitus without complications (principal)
CPT/HCPCS: 36415; 80053; 80061; 83036; 83721

== ENCOUNTER 2022-05-30 16:08 | Outpatient (CLI) | payer MEDICARE, OTHER ==
[2022-05-30 17:57] LABS: CALCIUM 9.1 mg/dL (8.5-10.3); CREATININE 1.4 mg/dL (0.4-1.0); POTASSIUM 4.4 mmol/L (3.5-5.0)
[2022-05-30 21:01] LABS: ESTIMATED AVERAGE GLUCOSE 160 mg/dL (70-100); HEMOGLOBIN A1c% 7.2 % (4.27-6.07)
== END 2022-05-30 16:09 | disposition home or self-care (01) ==
LOC: LAB.N 16:08
PROVIDERS: ATTEND Physician Assistant Medical
DX: E11.9 Type 2 diabetes mellitus without complications (principal)
CPT/HCPCS: 36415; 80048; 83036

== ENCOUNTER 2022-07-03 01:47 | Outpatient (CLI) | payer MEDICARE, OTHER | END 2022-07-03 01:48 | disposition EMS.NT | LOC: EMS 01:47 | DX: R39.9 Unspecified symptoms and signs involving the genitourinary system (principal); M54.9 Dorsalgia, unspecified; R51.9 Headache, unspecified; E11.65 Type 2 diabetes mellitus with hyperglycemia; Z96.0 Presence of urogenital implants ==

== ENCOUNTER 2022-08-24 08:00 | Outpatient (CLI) | payer MEDICARE, OTHER ==
[2022-08-24 17:49] LABS: ALBUMIN/GLOBULIN RATIO 1.1 (1.0-2.2); ALKALINE PHOSPHATASE 60 IU/L (42-121); ALT ALANINE AMINOTRANSFERASE 21 IU/L (10-60); AST ASPARTATE AMINOTRANSFERASE 24 IU/L (10-42); BILIRUBIN,TOTAL 1.1 mg/dL (0.2-1.0); BUN - BLOOD UREA NITROGEN 20 mg/dL (6-20); CALCIUM 9.4 mg/dL (8.5-10.3); CARBON DIOXIDE - CO2 27 mmol/L (21-32); CHLORIDE 106 mmol/L (101-111); CHOL/HDL RATIO 5.8 (<4.4); CHOLESTEROL 273 mg/dL; CREATININE 1.2 mg/dL (0.4-1.0); GFR - MDRD 44 (>89); GLUCOSE 156 mg/dL (70-100); HDL CHOLESTEROL 47 mg/dL; LDL CHOLESTEROL,CALCULATED 178 mg/dL; LDL/HDL RATIO 3.8 (<4.4); POTASSIUM 4.6 mmol/L (3.5-5.0); SODIUM 140 mmol/L (135-145); TOTAL PROTEIN 7.5 g/dL (6.7-8.2); TRIGLYCERIDES 239 mg/dL; VLDL CHOLESTEROL 48 mg/dL
[2022-08-24 20:56] LABS: ESTIMATED AVERAGE GLUCOSE 151 mg/dL (70-100); HEMOGLOBIN A1c% 6.9 % (4.27-6.07)
== END 2022-08-24 23:59 | disposition home or self-care (01) ==
LOC: LAB.N 08:00
PROVIDERS: ATTEND Physician Assistant Medical
DX: E11.9 Type 2 diabetes mellitus without complications (principal)
CPT/HCPCS: 36415; 80053; 80061; 83036; 83721

== ENCOUNTER 2022-08-31 14:14 | Outpatient (CLI) | payer MEDICARE, OTHER ==
--- NOTE | 2022-08-31 16:36 | XRAY Report ---
PROCEDURE: Chest 2 View X-Ray INDICATIONS: DYSPNEA TECHNIQUE: 2 views of the chest were acquired. COMPARISON: None. FINDINGS: Surgical changes and devices: None. Lungs and pleura: No pleural effusions or pneumothorax. Lungs are clear. Mediastinum: Mediastinal contours appear normal. Heart size is normal. Bones and chest wall: No suspicious bony lesions. Overlying soft tissues appear unremarkable. IMPRESSION: No acute cardiopulmonary process. Reviewed by: Wild Jean-Baptiste on 08/31/2022 4:34 PM PDT Approved by: Wild Jean-Baptiste on 08/31/2022 4:34 PM PDT Station ID: [id number]
== END 2022-08-31 14:15 | disposition home or self-care (01) ==
LOC: DI 14:14
PROVIDERS: ATTEND Internal Medicine Nephrology
DX: R06.00 Dyspnea, unspecified (principal); J91.8 Pleural effusion in other conditions classified elsewhere; N17.9 Acute kidney failure, unspecified

== ENCOUNTER 2022-08-31 14:22 | Outpatient (CLI) | payer MEDICARE, OTHER ==
--- NOTE | 2022-09-01 12:17 | Ultrasound Report ---
PROCEDURE: Retroperitoneal INDICATIONS: ACUTE KIDNEY INJURY TECHNIQUE: Real-time scanning was performed of the retroperitoneal organs, with image documentation. COMPARISON: CT abdomen and pelvis, 07/10/2018. Ultrasound abdomen, 03/16/2012. FINDINGS: Kidneys: Kidneys are normal in size. Right kidney measures 11.1 cm long; left kidney measures 11.3 cm long. Right renal cortical thickness is 1.1 cm; left renal cortical thickness is 1.1 cm. No rodrigo d masses, hydronephrosis, or nephrolithiasis. Note is made of extrarenal pelvis in left kidney. Pancreas: Visualized portions of the pancreas are sonographically normal. Aorta: Visualized aorta is normal in caliber at 3 cm or less. Iliac arteries: Proximal common iliac arteries are normal in caliber at 2.5 cm or less. IVC: Intrahepatic inferior vena cava is patent. Bladder: Pre-void bladder volume is 77.1 mL. Post-void residual is 0 mL. Pre-void images demonstra te no intraluminal masses or stones. On pre-void images, neither ureteral jets are noted with color Doppler interrogation. (Of note, ureteral jets may not be detectable in up to 25% of cases due to in sufficient differences in specific gravity between ureteral and bladder urine). Miscellaneous: No free abdominal fluid. IMPRESSION: 1. Normal ultrasound appearance of kidneys. Reviewed by: Lillian Gardner MD on 09/01/2022 12:16 PM PDT Approved by: Lillian Gardner MD on 09/01/2022 12:16 PM PDT Station ID: [id number]
== END 2022-08-31 14:23 | disposition home or self-care (01) ==
LOC: DI 14:22
PROVIDERS: ATTEND Internal Medicine Nephrology
DX: N17.9 Acute kidney failure, unspecified (principal)

== ENCOUNTER 2022-10-23 13:01 | Outpatient (CLI) | payer MEDICARE, OTHER ==
--- NOTE | 2022-10-24 12:55 | Mammography Report ---
BILATERAL DIGITAL SCREENING MAMMOGRAM 3D/2D: 10/23/2022 CLINICAL: Family history of breast cancer. Routine screening. Comparison is made to exams dated: 07/25/2021 mammogram, 05/27/2020 mammogram, 01/23/2019 mammogram, 2017 mammogram, 05/24/2016 mammogram, and 12/15/2014 mammogram - [facility]. There are scattered areas of fibroglandular density in both breasts (category b / 25%-50% glandular t issue). There are benign calcifications in both breasts. No significant masses, calcifications, or other findings are seen in either breast. There has been no significant interval change. IMPRESSION: BENIGN There is no mammographic evidence of malignancy. A 1 year screening mammogram is recommended. Based on the Tyrer Cuzick model (a risk assessment model) the patients lifetime risk is 7.1% and her 10 year risk is 7.1%. According to the ACR, ACS, and NCCN guidelines, an annual breast MRI exam miguel angel g with mammogram is recommended if the patients lifetime risk is 20% or greater. This exam was interpreted at Station ID: [id number]. NOTE: For mammograms, a report in lay terms will be sent to the patient. Approximately 15% of breast malignancies will not be visualized mammographically. In the management of a palpable breast mass, a negative mammogram must not discourage biopsy of a clinically suspicious lesion. Electronically Signed By: Valentino grullon/pablo:10/23/2022 18:21:33 letter sent: No_Letter ACR BI-RADS Category 2: Benign Finding(s) 3342F PARENCHYMAL PATTERN: (A) - The breast(s) demonstrate(s) scattered fibroglandular densities. BI-RADS CATEGORY: (2) - 2 Mammogram [id number] 1 year screening LATERALITY: (B)
== END 2022-10-23 13:02 | disposition home or self-care (01) ==
LOC: DI.N 13:01
DX: Z12.31 Encounter for screening mammogram for malignant neoplasm of breast (principal); Z80.3 Family history of malignant neoplasm of breast

== ENCOUNTER 2022-11-07 11:27 | Outpatient (CLI) | payer MEDICARE, OTHER | END 2022-11-07 11:28 | disposition home or self-care (01) | LOC: LAB.N 11:27 | PROVIDERS: ATTEND Internal Medicine Cardiovascular Disease | DX: I10 Essential (primary) hypertension (principal); E11.9 Type 2 diabetes mellitus without complications; E78.2 Mixed hyperlipidemia | CPT/HCPCS: 36415; 81599; 83695; 83704 ==

== ENCOUNTER 2022-11-24 16:01 | Outpatient (CLI) | payer MEDICARE, OTHER ==
[2022-11-24 21:15] LABS: ESTIMATED AVERAGE GLUCOSE 148 mg/dL (70-100); HEMOGLOBIN A1c% 6.8 % (4.27-6.07)
[2022-11-24 21:26] LABS: CALCIUM 9.3 mg/dL (8.5-10.3); CREATININE 1.3 mg/dL (0.4-1.0); POTASSIUM 4.7 mmol/L (3.5-5.0)
== END 2022-11-24 16:02 | disposition home or self-care (01) ==
LOC: LAB.N 16:01
PROVIDERS: ATTEND Physician Assistant Medical
DX: E11.9 Type 2 diabetes mellitus without complications (principal); E55.9 Vitamin D deficiency, unspecified
CPT/HCPCS: 36415; 80048; 82306; 83036

== ENCOUNTER 2023-02-21 16:56 | Outpatient (CLI) | payer MEDICARE, OTHER ==
[2023-02-21 20:48] LABS: ALBUMIN 4.3 g/dL (3.2-5.5); ALBUMIN/GLOBULIN RATIO 1.5 (1.0-2.2); ALKALINE PHOSPHATASE 64 IU/L (42-121); ALT ALANINE AMINOTRANSFERASE 19 IU/L (10-60); AST ASPARTATE AMINOTRANSFERASE 22 IU/L (10-42); BILIRUBIN,TOTAL 0.9 mg/dL (0.2-1.0); BUN - BLOOD UREA NITROGEN 14 mg/dL (6-20); CALCIUM 9.8 mg/dL (8.5-10.3); CARBON DIOXIDE - CO2 26 mmol/L (21-32); CHLORIDE 104 mmol/L (101-111); CHOL/HDL RATIO 2.6 (<4.4); CHOLESTEROL 131 mg/dL; CREATININE 1.2 mg/dL (0.6-1.3); GFR - MDRD 44 (>89); GLUCOSE 192 mg/dL (74-104); HDL CHOLESTEROL 51 mg/dL; LDL CHOLESTEROL,CALCULATED 35 mg/dL; LDL/HDL RATIO 0.7 (<4.4); POTASSIUM 4.5 mmol/L (3.5-4.5); SODIUM 139 mmol/L (135-145); TOTAL PROTEIN 7.2 g/dL (6.4-8.9); TRIGLYCERIDES 225 mg/dL (48-352); VLDL CHOLESTEROL 45 mg/dL
[2023-02-21 20:51] LABS: ESTIMATED AVERAGE GLUCOSE 143 mg/dL (70-100); HEMOGLOBIN A1c% 6.6 % (4.27-6.07)
== END 2023-02-21 16:57 | disposition home or self-care (01) ==
LOC: LAB.N 16:56
PROVIDERS: ATTEND Nurse Practitioner
DX: E11.9 Type 2 diabetes mellitus without complications (principal); E78.2 Mixed hyperlipidemia
CPT/HCPCS: 36415; 80053; 80061; 83036; 83721

== ENCOUNTER 2023-04-03 12:01 | Outpatient (CLI) | payer MEDICARE, OTHER | END 2023-04-03 12:02 | disposition critical access hospital (66) | LOC: EMS 12:01 | DX: R07.9 Chest pain, unspecified (principal) | CPT/HCPCS: A0425; A0429 ==

== ENCOUNTER 2023-04-03 12:25 | Emergency (ER) | payer MEDICARE, OTHER ==
[2023-04-03] MEDS ORDERED: SODIUM CHLORIDE 0.9% 1,000 ML IV STA (12:31)
--- NOTE | 2023-04-03 12:34 | ED Physician Documentation ---
PD HPI CHEST PAIN - Stated complaint Stated Complaint: CP - Chief complaint Chief Complaint: Cardiac - History obtained from History obtained from: Patient, EMS - Additional information Additional information: The patient comes to the emergency department via EMS for chief complaint of intermittent chest pain that started this morning when she got up from bed. She states it felt as though there was a "ping-pong ball" at the medial edge of her left breast, but deep inside. She states that it seems to come and go randomly and is not associated with any other symptoms such as nausea, shortness of breath, diaphoresis, or lightheadedness. She denies any history of cardiac diagnoses. No palpitations today. The patient states that she has never had this pain before. She has not had any respiratory infections recently. The patient states that she is not a smoker. She thinks her pain at its worst is a 5 out of 10. Nothing specifically seems to bring it on or make it better. The patient has a history of hypertension which has been fairly well controlled on losartan and propranolol. She also states she is on medication for her cholesterol. 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 HEENT: Cataracts, Tonsil/Adenoidectomy - Present Medications Home Medications: Ambulatory Orders Medication Instructions Recorded Confirmed Aspirin Chewable [[place] 81 mg PO DAILY 04/03/23 04/03/23 Aspirin] Dulaglutide [Trulicity] 3 mg SQ OAW 04/03/23 04/03/23 Glimepiride [Amaryl] 2 mg PO BID 04/03/23 04/03/23 Linaclotide [Linzess] 1 tab PO DAILY 04/03/23 04/03/23 Losartan Potassium 50 mg PO DAILY 04/03/23 04/03/23 Omeprazole Magnesium 20 mg PO BID 04/03/23 04/03/23 PARoxetine HCL [Paroxetine Cr] 50 mg PO DAILY 04/03/23 04/03/23 Rizatriptan Benzoate [Rizatriptan] 5 mg PO PRN PRN 04/03/23 04/03/23 Zolpidem Tartrate [Ambien] 10 mg PO DAILY PM 04/03/23 04/03/23 - Allergies Allergies/Adverse Reactions: Allergies Allergy/AdvReac Type Severity Reaction Status Date / Time lisinopril Allergy cough Verified 04/03/23 12:31 meperidine HCl * Allergy Rash Verified 04/03/23 12:31 [From Demerol] propofol AdvReac Severe Anxiety Verified 04/03/23 12:31 ampicillin AdvReac diarrhea Verified 04/03/23 12:31 atorvastatin calcium * AdvReac Respiratory Verified 04/03/23 12:31 [From Lipitor] ezetimibe [From Zetia] AdvReac Cramps Verified 04/03/23 12:31 ibuprofen [From Motrin] AdvReac Cramps Verified 04/03/23 12:31 pitavastatin calcium * AdvReac Cramps Verified 04/03/23 12:31 [From Livalo] ranitidine [From Zantac] AdvReac tired,blurry Verified 04/03/23 12:31 vision rofecoxib [From Vioxx] AdvReac Respiratory Verified 04/03/23 12:31 simvastatin [From Zocor] AdvReac Cramps Verified 04/03/23 12:31 sulfamethoxazole AdvReac Nausea Verified 04/03/23 12:31 [From Septra] trimethoprim [From Septra] AdvReac Nausea Verified 04/03/23 12:31 paper tape Allergy Unknown Uncoded 04/03/23 12:31 - Social History Does the pt smoke?: No Smoking Status: Never smoker Does the pt drink ETOH?: Yes Does the pt have substance abuse?: No - Immunizations Immunizations are current?: Yes - POLST Patient has POLST: No PD ED PE NORMAL - Vitals Vital signs reviewed: Yes - General General: Alert and oriented X 3, No acute distress, Well developed/nourished - HEENT HEENT: Atraumatic, PERRL, EOMI, Moist mucous membranes - Neck Neck: Supple, no meningeal sign - Cardiac Cardiac: RRR, No murmur, Strong equal pulses - Respiratory Respiratory: No respiratory distress, Clear bilaterally - Abdomen Abdomen: Soft, Non tender, Non distended - Derm Derm: Normal color, Warm and dry, No rash - Extremities Extremities: No deformity, No edema, No calf tenderness / cord - Neuro Neuro: Alert and oriented X 3, Other (Grossly intact) - Psych Psych: Normal mood, Normal affect - Free text exam Free text exam: Tenderness palpation along inferior border of left breast, not reproducing the pain the patient's been having. Results - Vitals Vitals: Oxygen O2 Source Room air - EKG (time done) 1233 EKG releavant findings:: EKG personally interpreted by author of this note. Relevant findings are: Rate: Rate (enter#) (63) Rhythm: NSR [place]: Normal Intervals: Normal [place] QRS: Normal Ischemia: Normal ST segments - Labs Labs: Laboratory Tests 04/03/23 04/03/23 04/03/23 12:42 12:42 14:48 WBC 10.4 RBC 4.02 L Hgb 12.7 Hct 37.9 MCV 94.3 MCH 31.6 H MCHC 33.5 RDW 13.3 Plt Count 268 MPV 9.6 Neut # (Auto) 5.5 Lymph # (Auto) 3.6 H Le[place] # (Auto) 0.9 Eos # (Auto) 0.3 Baso # (Auto) 0.1 Absolute Nucleated RBC 0.00 Nucleated RBC % 0.0 Sodium 137 Potassium 3.9 Chloride 105 Carbon Dioxide 24 Anion Gap 8.0 BUN 24 H Creatinine 1.3 Estimated GFR (MDRD) 40 L Glucose 139 H Calcium 9.1 Total Bilirubin 0.6 AST 17 ALT 15 Alkaline Phosphatase 64 Troponin I High Sens 5.9 6.0 Total Protein 6.4 Albumin 4.0 Globulin 2.4 Albumin/Globulin Ratio 1.7 Lipase 100 H - Rads (name of study) CXR Relevant Findings:: Final report received, See rad report (nad) PD Medical Decision Making - ED course Complexity details: reviewed results, re-evaluated patient, considered differential, d/w patient, d/w family ED course: The patient was worked up with labs, EKG, and chest x-ray, all of which were unremarkable, including repeat cardiac enzymes. I felt the pt was stable for d/c home. We have discussed the need for follow-up for stress test, and the usual indications for return. Departure - Departure Disposition: Home, Self Care Clinical Impression: Atypical chest pain Condition: Stable Instructions: ED Chest Pain Atypical Unkn Cause Comments: Your EKG, chest x-ray, and labs all look good, including a repeat set of cardiac enzymes. There is no evidence of heart attack or another emergent cause of chest pain today. Please follow-up with your primary doctor to discuss having a stress test done if you continue to have symptoms. There are many structures within the chest that can cause pain but are not emergent. Most likely, your pain is caused by one of these. However, if you develop severe chest pain shortness of breath, these return to the emergency department for reevaluation. Forms: PCP List Discharge Date/Time: 04/03/23 16:09
[2023-04-03 12:47] LABS: BASOPHILS # (AUTO) 0.1 10^3/uL (0.0-0.1); EOSINOPHILS # (AUTO) 0.3 10^3/uL (0.0-0.7); EOSINOPHILS % (AUTO) 2.4 %; HCT - HEMATOCRIT 37.9 % (37.0-47.0); HGB - HEMOGLOBIN 12.7 g/dL (12.0-16.0); LYMPHOCYTES # (AUTO) 3.6 10^3/uL (1.5-3.5); LYMPHOCYTES % (AUTO) 34.3 %; MEAN CORPUSCULAR HEMOGLOBIN 31.6 pg (27.0-31.0); MEAN CORPUSCULAR HGB CONC 33.5 g/dL (32.0-36.0); MEAN CORPUSCULAR VOLUME 94.3 fL (81.0-99.0); MEAN PLATELET VOLUME 9.6 fL (7.9-10.8); MONOCYTES # (AUTO) 0.9 10^3/uL (0.0-1.0); NEUTROPHILS # (AUTO) 5.5 10^3/uL (1.5-6.6); PLT - PLATELET COUNT 268 10^3/uL (130-450); RED BLOOD COUNT 4.02 10^6/uL (4.20-5.40); RED CELL DISTRIBUTION WIDTH 13.3 % (12.0-15.0); WHITE BLOOD COUNT 10.4 x10^3/uL (4.8-10.8)
[2023-04-03 13:10] LABS: ALBUMIN/GLOBULIN RATIO 1.7 (1.0-2.2); BILIRUBIN,TOTAL 0.6 mg/dL (0.2-1.0); CALCIUM 9.1 mg/dL (8.5-10.3); CREATININE 1.3 mg/dL (0.6-1.3); POTASSIUM 3.9 mmol/L (3.5-4.5); TOTAL PROTEIN 6.4 g/dL (6.4-8.9)
[2023-04-03 13:13] LABS: TROPONIN I HIGH SENSITIVITY 5.9 ng/L (2.3-14.8)
--- NOTE | 2023-04-03 13:20 | XRAY Report ---
PROCEDURE: Chest 1 View X-Ray INDICATIONS: chest pain, left TECHNIQUE: One view of the chest was acquired. COMPARISON: Chest x-ray 08/31/2022 FINDINGS: Surgical changes and devices: None. Lungs and pleura: No pleural effusions or pneumothorax. Lungs are clear. Mediastinum: Mediastinal contours appear normal. Heart size is mildly prominent. Bones and chest wall: No suspicious bony lesions. Overlying soft tissues appear unremarkable. IMPRESSION: No acute cardiopulmonary process. Reviewed by: Rosalba Crespo MD on 04/03/2023 1:19 PM PST Approved by: Rosalba Crespo MD on 04/03/2023 1:19 PM [facility] Station ID: [id number]
[2023-04-03 15:41] VITALS: BP 155/65; O2SAT 99
== END 2023-04-03 16:09 | disposition home or self-care (01) ==
LOC: ED 12:25
DX: R07.89 Other chest pain (principal)
CPT/HCPCS: 36415; 80053; 83690; 84484; 85025; 93005; 99283; 99284

== ENCOUNTER 2023-07-02 05:13 | Outpatient (CLI) | payer MEDICARE, OTHER | END 2023-07-02 05:14 | disposition critical access hospital (66) | LOC: EMS 05:13 | DX: R51.9 Headache, unspecified (principal); M54.2 Cervicalgia; M79.602 Pain in left arm; M25.552 Pain in left hip; R11.0 Nausea; W01.0XXA Fall on same level from slipping, tripping and stumbling without subsequent striking against object, initial encounter; Y92.010 Kitchen of single-family (private) house as the place of occurrence of the external cause | CPT/HCPCS: A0425; A0429 ==

== ENCOUNTER 2023-07-02 05:33 | Emergency (ER) | payer MEDICARE, OTHER ==
--- NOTE | 2023-07-02 05:53 | ED Physician Documentation ---
History of Present Illness - Stated complaint Stated Complaint: L SIDE PX - History obtained from History obtained from: Patient, EMS - Additonal information Additional information: The patient comes to the emergency department via EMS for chief complaint of fall and left arm pain. The patient had gotten up to have a midnight snack and was sitting on a barstool when she went to get off and lost her balance. She fell to the tile floor, hitting her left side and bumping her head on the floor. Patient states that she does not believe she lost consciousness. She is mainly complaining of left upper extremity pain, starting from her shoulder and going all the way down to her wrist. She does not know exactly how long she was on the floor, but her family found her and called EMS. The patient was complaining of a little bit of pain in her neck for the medics so they put a c- collar on. The patient denies any lower extremity pain. She initially complained of some left hip pain but once her leg was straightened out and pos ition on the stretcher, the patient had no further pain. She denies any near syncopal episode, shortness of breath, chest pain, or palpitations. She states she merely lost her balance getting off the stool. The patient denies any back pain or rib pain. No abdominal pain. No other complaints at this time. 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 HEENT: Cataracts, Tonsil/Adenoidectomy - Present Medications Home Medications: Ambulatory Orders Medication Instructions Recorded Confirmed Aspirin Chewable [[place] 81 mg PO DAILY 04/03/23 07/02/23 Aspirin] Dulaglutide [Trulicity] 3 mg SQ OAW 04/03/23 07/02/23 Glimepiride [Amaryl] 2 mg PO BID 04/03/23 07/02/23 Linaclotide [Linzess] 1 tab PO DAILY 04/03/23 07/02/23 Losartan Potassium 50 mg PO DAILY 04/03/23 07/02/23 Omeprazole Magnesium 20 mg PO BID 04/03/23 07/02/23 PARoxetine HCL [Paroxetine Cr] 50 mg PO DAILY 04/03/23 07/02/23 Rizatriptan Benzoate [Rizatriptan] 5 mg PO PRN PRN 04/03/23 07/02/23 Zolpidem Tartrate [Ambien] 10 mg PO DAILY PM 04/03/23 07/02/23 HYDROcod/ACETAM 5/325 [[place] 5/325] 1 - 2 tablet PO Q6H PRN #20 tablet 07/02/23 - Allergies Allergies/Adverse Reactions: Allergies Allergy/AdvReac Type Severity Reaction Status Date / Time lisinopril Allergy cough Verified 07/02/23 06:08 meperidine HCl * Allergy Rash Verified 07/02/23 06:08 [From Demerol] propofol AdvReac Severe Anxiety Verified 07/02/23 06:08 ampicillin AdvReac diarrhea Verified 07/02/23 06:08 atorvastatin calcium * AdvReac Respiratory Verified 07/02/23 06:08 [From Lipitor] ezetimibe [From Zetia] AdvReac Cramps Verified 07/02/23 06:08 ibuprofen [From Motrin] AdvReac Cramps Verified 07/02/23 06:08 pitavastatin calcium * AdvReac Cramps Verified 07/02/23 06:08 [From Livalo] ranitidine [From Zantac] AdvReac tired,blurry Verified 07/02/23 06:08 vision rofecoxib [From Vioxx] AdvReac Respiratory Verified 07/02/23 06:08 simvastatin [From Zocor] AdvReac Cramps Verified 07/02/23 06:08 sulfamethoxazole AdvReac Nausea Verified 07/02/23 06:08 [From Septra] trimethoprim [From Septra] AdvReac Nausea Verified 07/02/23 06:08 paper tape Allergy Unknown Uncoded 07/02/23 06:08 - Social History Does the pt smoke?: No Smoking Status: Never smoker Does the pt drink ETOH?: Yes Does the pt have substance abuse?: No - Immunizations Immunizations are current?: Yes - POLST Patient has POLST: No PD ED PE NORMAL - Vitals Vital signs reviewed: Yes - General General: Alert and oriented X 3, No acute distress, Well developed/nourished - HEENT HEENT: Atraumatic, PERRL, EOMI, Moist mucous membranes - Neck Neck: Supple, no meningeal sign, No bony TTP - Cardiac Cardiac: RRR, No murmur, Strong equal pulses - Respiratory Respiratory: No respiratory distress, Clear bilaterally - Abdomen Abdomen: Soft, Non tender, Non distended - Back Back: No spinal TTP - Derm Derm: Normal color, Warm and dry, No rash - Extremities Extremities: No deformity, No edema, Other (Diffuse tenderness to palpation, starting in the patient's anterolateral left shoulder and extending down the distribution of the humerus, sparing the elbow, but involving the forearm and wrist. Patient states tenderness is at the same intensity everywhere. No tenderness over the hips or pelvis.) - Neuro Neuro: Alert and oriented X 3, shipsmith 2-12 intact, No motor deficit, No sensory deficit, Normal speech, Other (GCS 15) - Psych Psych: Normal mood, Normal affect - Free text exam Free text exam: No pain with range of motion of left hip or remainder of left lower extremity. Results - Vitals Vitals: Vital Signs - 24 hr 07/02/23 07/02/23 05:38 06:40 Temperature 36.4 C L Heart Rate 66 70 Respiratory 17 15 Rate Blood Pressure 148/95 H 159/76 H O2 Saturation 98 93 Oxygen O2 Source Room air PD Medical Decision Making - ED course Complexity details: reviewed old records, reviewed results, re-evaluated patient, considered differential, d/w patient, d/w family ED course: The patient was treated symptomatically in the emergency department with IV Dilaudid and worked up with CT scans of the head, neck, and left upper extremity, as the patient had such diffuse complaints in the left upper extremity that it made more sense to discuss the CT instead of a large number of x-ray views. CT scans were done and looked good with exception of a humeral head fracture, by my interpretation. However, the final reads on all of these CTs are still pending and The patient has been signed out to Dr. Butt at change of shift, pending CT reads and final impression/disposition. Patient has been placed in a sling based on preliminary CT reading. Departure - Departure Clinical Impression: Ground-level fall Humeral head fracture Qualifiers: Encounter type: initial encounter Fracture type: closed Laterality: left Qualified Code(s): S42.292A - Other displaced fracture of upper end of left humerus, initial encounter for closed fracture Closed head injury Qualifiers: Encounter type: initial encounter Qualified Code(s): S09.90XA - Unspecified injury of head, initial encounter Condition: Stable Instructions: ED Fx Upper Ext Prescriptions: HYDROcod/ACETAM 5/325 [[place] 5/325] 1 - 2 tablet PO Q6H PRN #20 tablet PRN Reason: Pain Comments: Your CT scans of the head and neck look good. Your left arm CT scan shows some cracks through the very top, or head, of your upper arm bone, the humerus. This is why you have shoulder pain. Because the cast cannot be placed around the shoulder, we used the body as a mode of immobilization and such, your arm has been placed in a sling to prevent excessive movement. It will take 4 to 6 weeks at least for this fracture to heal up, just like any other break. We would like you to follow-up with the it operations specialist to make sure this is healing appropriately. Please call to make the next available appointment and be sure to tell them that you were seen in the emergency department. A prescription for pain medication has been electronically transmitted to the [facility] in [place], your pharmacy of choice on record. You may pick this up and use it as needed, along with ibuprofen. You may apply ice to the shoulder to help with pain and swelling. Do not be surprised if you notice swelling that tracks down your arm toward the forearm and elbow and perhaps, even some bruising. This is normal and will go away on its own over time.
[2023-07-02] MEDS: HYDROmorphone 1 MG/ML CARPUJECT IVP STA ×2 (05:57→08:05)
[2023-07-02 06:47] VITALS: O2SAT 93
[2023-07-02] MEDS ORDERED: HYDROmorphone 1 MG/ML CARPUJECT IVP STA (06:59)
--- NOTE | 2023-07-02 07:55 | CT Report ---
PROCEDURE: Head WO INDICATIONS: fall/head injury TECHNIQUE: Noncontrast 4.5 mm thick angled axial sections acquired from the foramen magnum to the vertex. For r adiation dose reduction, the following was used: automated exposure control, adjustment of mA and/or kV according to patient size. COMPARISON: None. FINDINGS: Image quality: Excellent. CSF spaces: Basal cisterns are patent. No extra-axial fluid collections. Ventricles are symmetric in size and shape. Brain: No midline shift. No intracranial masses or hemorrhage. A few mild hypodensities in the subc ortical and periventricular white matter are most commonly seen in setting of chronic microvascular i schemic changes. Age-related cerebral and cerebellar volume loss is seen. Intracranial vascular calci fications are noted in the internal carotid arteries. Skull and face: Calvarium and visualized facial bones are intact, without suspicious lesions. Sinuses: Visualized sinuses and mastoids are clear. IMPRESSION: No acute intracranial pathology. There is no significant discrepancy when compared with the preliminary overnight report. Reviewed by: Landon Barker MD on 07/02/2023 7:54 AM PST Approved by: Landon Barker MD on 07/02/2023 7:54 AM PST Station ID: [id number]
--- NOTE | 2023-07-02 07:58 | CT Report ---
PROCEDURE: Cervical Spine WO INDICATIONS: fall/head injury TECHNIQUE: Noncontrast 3 mm thick sections acquired from the skull base to the T4 level. Sagittal and coronal r eformats were then constructed. For radiation dose reduction, the following was used: automated exp osure control, adjustment of mA and/or kV according to patient size. COMPARISON: None. FINDINGS: Image quality: Excellent. Bones: No fractures or dislocations. Visualized superior ribs are intact. [id number] multilev el degenerative disc disease, uncovertebral joint hypertrophy, and facet hypertrophy, which result in multilevel neural foraminal narrowing. Soft tissues: Prevertebral soft tissues are normal in thickness. No paravertebral hematomas. No ap ical pneumothoraces. IMPRESSION: No acute cervical spine fracture or subluxation. There is no significant discrepancy when compared with the preliminary overnight report. Reviewed by: Landon Barker MD on 07/02/2023 7:57 AM PST Approved by: Landon Barker MD on 07/02/2023 7:57 AM PST Station ID: [id number]
--- NOTE | 2023-07-02 08:08 | CT Report ---
PROCEDURE: Upper Extremity LT WO INDICATIONS: fall/injury/pain shoulder/humerus/FA/wrist TECHNIQUE: Noncontrast 2 mm axial sections were acquired through the elbow joint, with coronal and sagittal refo rmats. For radiation dose reduction, the following was used: automated exposure control, adjustment of mA and/or kV according to patient size. COMPARISON: None. FINDINGS: Image quality: Excellent. Bones: There is a comminuted minimally displaced fracture of the proximal humeral head and neck. The humeral shaft component is mildly impacted. Greater and lesser tuberosity fracture fragments are min imally displaced with maximum step-off approximately 3 mm. No involvement of the humeral head articul ar surface is seen. The scapula and clavicle are intact. No acute displaced rib fracture is seen. Mild cortical irregularity is seen at the distal radius may be related to a nondisplaced fracture of uncertain age. Recommend correlation for point tenderness. The remaining visualized osseous structure s appear to be intact. Soft tissues: Moderate to large glenohumeral lipohemarthrosis. The musculature of the upper arm and forearm is normal in bulk. No bulky lymphadenopathy. Intramuscular lipoma is partially imaged. Subsca pularis muscle. IMPRESSION: 1.Minimally displaced comminuted impacted fracture of the proximal humeral head and neck. 2.Focal cortical irregularity at the distal radial metaphysis may be posttraumatic, but is of uncerta in age. Recommend correlation for point tenderness. Reviewed by: Landon Barker MD on 07/02/2023 8:07 AM PST Approved by: Landon Barker MD on 07/02/2023 8:07 AM PST Station ID: [id number]
--- NOTE | 2023-07-02 08:36 | ED Physician Documentation ---
ED Addendum - Addendum Addendum: 07/02/23 08:[address] reports from radiology were no acute findings in the head or cervical region. There was the confirmation of the humeral head fracture which was comminuted and slightly impacted. No dislocation. I reviewed the confirmed reports with the patient and her . They did not have any subsequent questions. They were recommended to follow-up with orthopedics in about 1-1/2 weeks at which point they can be reevaluated and see if there ready for progressing to simple exercises. The patient has had problems with stomach irritation so avoids NSAIDs. It was recommended to take Tylenol 500 to 650 mg [address] Moura had prescribed hydrocodone to use in addition to that when needed for worse pain. The patient is discharged home in stable condition Diagnoses: 1. Accidental fall 2. Head contusion 3. Proximal humerus fracture
[2023-07-02 08:54] VITALS: BP 155/91
== END 2023-07-02 08:49 | disposition home or self-care (01) ==
LOC: ED 05:33
DX: S42.292A Other displaced fracture of upper end of left humerus, initial encounter for closed fracture (principal); S09.90XA Unspecified injury of head, initial encounter; W07.XXXA Fall from chair, initial encounter; Y92.008 Other place in unspecified non-institutional (private) residence as the place of occurrence of the external cause; I10 Essential (primary) hypertension; E78.00 Pure hypercholesterolemia, unspecified; E11.9 Type 2 diabetes mellitus without complications; Z79.84 Long term (current) use of oral hypoglycemic drugs; Z79.899 Other long term (current) drug therapy
CPT/HCPCS: 70450; 72125; 73200; 96374; 96376; 99284; J1170

== ENCOUNTER 2023-07-05 13:01 | Outpatient (CLI) | payer MEDICARE, OTHER ==
--- NOTE | 2023-07-05 17:18 | XRAY Report ---
PROCEDURE: Shoulder 3 View LT INDICATIONS: LEFT SHOULDER PAIN TECHNIQUE: 3 views of the shoulder were acquired. COMPARISON: None. FINDINGS: Bones: Comminuted, mildly impacted left humeral head and neck fracture. No suspicious osseous lesion s. Glenohumeral alignment is maintained. Coracoclavicular and acromioclavicular intervals are maintai amie. Soft tissues: No suspicious soft tissue calcifications. The visualized lungs are within normal limi ts. IMPRESSION: Comminuted, mildly impacted left humeral head and neck fracture. Reviewed by: Valentino Short MD on 07/05/2023 5:17 PM PST Approved by: Valentino Short MD on 07/05/2023 5:17 PM PST Station ID: [id number]
== END 2023-07-05 23:59 | disposition home or self-care (01) ==
LOC: DI.WOS 13:01
PROVIDERS: ATTEND Orthopaedic Surgery
DX: S42.292A Other displaced fracture of upper end of left humerus, initial encounter for closed fracture (principal)

== ENCOUNTER 2023-07-10 13:25 | Outpatient (CLI) | payer MEDICARE, OTHER | END 2023-07-10 23:59 | disposition left against medical advice (07) | LOC: EMS 13:25 | DX: E11.65 Type 2 diabetes mellitus with hyperglycemia (principal); R25.1 Tremor, unspecified ==

== ENCOUNTER 2023-08-08 14:58 | Outpatient (CLI) | payer MEDICARE, OTHER ==
[2023-08-08 17:52] LABS: CALCIUM 9.7 mg/dL (8.5-10.3); CREATININE 1.1 mg/dL (0.6-1.3); POTASSIUM 3.9 mmol/L (3.5-4.5)
[2023-08-08 20:42] LABS: ESTIMATED AVERAGE GLUCOSE 143 mg/dL (70-100); HEMOGLOBIN A1c% 6.6 % (4.27-6.07)
== END 2023-08-08 14:59 | disposition home or self-care (01) ==
LOC: LAB.N 14:58
PROVIDERS: ATTEND Physician Assistant Medical
DX: E11.9 Type 2 diabetes mellitus without complications (principal)
CPT/HCPCS: 36415; 80048; 83036

== ENCOUNTER 2023-08-08 15:03 | Outpatient (CLI) | payer MEDICARE, OTHER ==
--- NOTE | 2023-08-09 14:17 | XRAY Report ---
PROCEDURE: Sacrum/Coccyx INDICATIONS: COCCYX PAIN TECHNIQUE: 2 views of the sacrum and coccyx acquired. COMPARISON: None. FINDINGS: Bones: No fractures or dislocations. No suspicious bony lesions. Mild sacroiliac joint and hip deg eneration bilaterally. Soft tissues: Visualized bowel gas pattern is normal. No suspicious soft tissue densities. IMPRESSION: 1. No acute bony abnormality. 2. Mild lateral sacroiliac and hip joint degeneration. Reviewed by: Lillian Gardner MD on 08/09/2023 2:16 PM PDT Approved by: Lillian Gardner MD on 08/09/2023 2:16 PM PDT Station ID: [id number]
== END 2023-08-08 15:04 | disposition home or self-care (01) ==
LOC: DI.N 15:03
PROVIDERS: ATTEND Physician Assistant
DX: M47.898 Other spondylosis, sacral and sacrococcygeal region (principal); M16.0 Bilateral primary osteoarthritis of hip; E11.9 Type 2 diabetes mellitus without complications
CPT/HCPCS: 36415; 80048; 83036

== ENCOUNTER 2023-08-16 09:45 | Outpatient (CLI) | payer MEDICARE, OTHER ==
--- NOTE | 2023-08-16 13:50 | XRAY Report ---
PROCEDURE: Shoulder 3 View LT INDICATIONS: LEFT SHOULDER FRACTURE TECHNIQUE: 3 views of the shoulder were acquired. COMPARISON: 07/05/2023. FINDINGS: Bones: Ongoing healing of comminuted humeral head and neck fracture. No new fracture identified. No new fracture demonstrated. Visualized ribs appear intact. Soft tissues: No suspicious soft tissue calcifications. The visualized lungs are within normal limi ts. IMPRESSION: Ongoing healing of comminuted mildly impacted humeral head and neck fracture. Reviewed by: Rosmery Payan MD, PhD on 08/16/2023 1:49 PM PDT Approved by: Rosmery Payan MD, PhD on 08/16/2023 1:49 PM PDT Station ID: [id number]
== END 2023-08-16 23:59 | disposition home or self-care (01) ==
LOC: DI.WOS 09:45
PROVIDERS: ATTEND Orthopaedic Surgery
DX: S42.212D Unspecified displaced fracture of surgical neck of left humerus, subsequent encounter for fracture with routine healing (principal); S42.292D Other displaced fracture of upper end of left humerus, subsequent encounter for fracture with routine healing

== ENCOUNTER 2023-10-04 16:53 | Outpatient (CLI) | payer MEDICARE, OTHER ==
--- NOTE | 2023-10-07 07:05 | Ultrasound Report ---
PROCEDURE: Ankle Brachial Index INDICATIONS: COLD FEET TECHNIQUE: Ankle-brachial indices were obtained bilaterally and recorded. COMPARISONS: None. FINDINGS: Right ankle brachial index (CON): 1.4 Left ankle brachial index (CON): 1.4 Triphasic waveforms are visualized bilaterally. No hemodynamically significant stenoses visualized on grayscale imaging. Healing potential: Ankle pressures >55 mm Hg in non-diabetics and >80 mm Hg in diabetics are likely to achieve primary h ealing of ischemic foot ulcers. Toe pressures >30 mm Hg are likely to achieve primary healing of ischemic foot ulcers, toe or transme tatarsal amputations. IMPRESSION: ABIs are the upper limits of normal bilaterally. Elevated ABIs can be associated with atherosclerotic calcifications. However, limited grayscale imaging demonstrates patent vessels without atheromatous plaque or calcifications. If further characterization is warranted, plain films of the ankles/feet co uld be used to evaluate for atheromatous calcifications. Reviewed by: Lottie Wiseman MD on 10/07/2023 7:04 AM PDT Approved by: Lottie Wiseman MD on 10/07/2023 7:04 AM PDT Station ID: [id number]
== END 2023-10-04 16:54 | disposition home or self-care (01) ==
LOC: DI 16:53
PROVIDERS: ATTEND Physician Assistant Medical
DX: R44.8 Other symptoms and signs involving general sensations and perceptions (principal)
CPT/HCPCS: 93922

== ENCOUNTER 2023-11-29 16:37 | Outpatient (CLI) | payer MEDICARE, OTHER ==
[2023-11-29 21:36] LABS: CHOL/HDL RATIO 2.7 (<4.4); CHOLESTEROL 135 mg/dL; ESTIMATED AVERAGE GLUCOSE 131 mg/dL (70-100); HDL CHOLESTEROL 50 mg/dL; HEMOGLOBIN A1c% 6.2 % (4.27-6.07); LDL CHOLESTEROL,CALCULATED 44 mg/dL; LDL/HDL RATIO 0.9 (<4.4); TRIGLYCERIDES 203 mg/dL; VLDL CHOLESTEROL 41 mg/dL
[2023-11-29 23:14] LABS: ALBUMIN 4.4 g/dL (3.2-5.5); ALBUMIN/GLOBULIN RATIO 1.4 (1.0-2.2); ALKALINE PHOSPHATASE 74 IU/L (42-121); ALT ALANINE AMINOTRANSFERASE 12 IU/L (10-60); AST ASPARTATE AMINOTRANSFERASE 16 IU/L (10-42); BILIRUBIN,TOTAL 1.1 mg/dL (0.2-1.0); BUN - BLOOD UREA NITROGEN 22 mg/dL (6-20); CALCIUM 9.9 mg/dL (8.5-10.3); CARBON DIOXIDE - CO2 25 mmol/L (21-32); CHLORIDE 105 mmol/L (101-111); CREATININE 1.2 mg/dL (0.6-1.3); GFR - MDRD 44 (>89); GLUCOSE 176 mg/dL (74-104); POTASSIUM 4.4 mmol/L (3.5-4.5); SODIUM 137 mmol/L (135-145); TOTAL PROTEIN 7.5 g/dL (6.4-8.9)
== END 2023-11-29 16:38 | disposition home or self-care (01) ==
LOC: LAB.N 16:37
PROVIDERS: ATTEND Physician Assistant Medical
DX: E78.5 Hyperlipidemia, unspecified (principal); E11.9 Type 2 diabetes mellitus without complications
CPT/HCPCS: 36415; 80053; 80061; 83036; 83721

== ENCOUNTER 2023-12-26 16:50 | Outpatient (CLI) | payer MEDICARE, OTHER ==
--- NOTE | 2023-12-26 20:14 | XRAY Report ---
PROCEDURE: Shoulder 2+V LT INDICATIONS: NONDISPLACED FRACTURE OF LESSER TUBEROSITY LT TECHNIQUE: 5 views of the shoulder were acquired. COMPARISON: Left shoulder radiographs 08/16/2023. CT left upper extremity 07/02/2023. FINDINGS: Bones: Prior fracture of the left humeral head/neck is less conspicuous. Mild deformity. No dislocat ions. No suspicious bony lesions. Visualized ribs appear intact. Soft tissues: No suspicious soft tissue calcifications. The visualized lungs are within normal limi ts. IMPRESSION: Prior left humeral head/neck fractures are less conspicuous due to healing which may be ongoing. Reviewed by: Nacho Ferguson MD on 12/26/2023 8:12 PM PDT Approved by: Nacho Ferguson MD on 12/26/2023 8:12 PM PDT Station ID: [id number]
== END 2023-12-26 16:51 | disposition home or self-care (01) ==
LOC: DI 16:50
PROVIDERS: ATTEND Orthopaedic Surgery
DX: S42.265D Nondisplaced fracture of lesser tuberosity of left humerus, subsequent encounter for fracture with routine healing (principal)